=== PATIENT | female | born 1995 | race Caucasian/White ===

== ENCOUNTER 2016-05-20 18:17 | Emergency (ER) | payer OTHER ==
[2016-05-20] MEDS ORDERED: ONDANSETRON 4 MG TABLET PO ONE (18:21)
[2016-05-20 18:22] VITALS: BMI 26.4
[2016-05-20 19:18] LABS: BASOPHIL 0.5 % (0-2.0); EOSINOPHIL 1.2 % (0-4.5); MCH 27.1 pg (25.7-33.7); MCHC 32.7 g/dl (32.0-36.0); MEAN CELL VOLUME 82.7 fl (80-96); MEAN PLT VOLUME 7.4 fl (7.5-11.1); NEUTROPHILS 77.8 % (42.8-82.8); PLATELET COUNT 338 K/MM3 (134-434); RDW 14.3 % (11.6-15.6); WHITE BLOOD COUNT 11.1 K/mm3 (4.0-10.0)
[2016-05-20] MEDS ORDERED: ONDANSETRON 4 MG/2 ML VIAL ONE (19:32)
[2016-05-20 19:40] LABS: ALBUMIN 3.5 g/dl (3.4-5.0); ALK PHOS 110 U/L (45-117); AMYLASE 44 U/L (25-115); ANION GAP 9 (8-16); BILIRUBIN,TOTAL 0.3 mg/dL (0.2-1.0); CO2 26 mmol/L (21-32); CREATININE 0.9 mg/dL (0.55-1.02); GLUCOSE,RANDOM 74 mg/dL (74-106); SGPT/ALT 39 U/L (12-78); TOT PROT 7.4 g/dl (6.4-8.2)
[2016-05-20 19:43] LABS: SGOT/AST 29 U/L (15-37)
[2016-05-20 19:49] LABS: URINE APPEARANCE CLEAR; URINE BILIRUBIN NEGATIVE (NEGATIVE); URINE COLOR YELLOW; URINE GLUCOSE (UA) NEGATIVE (NEGATIVE); URINE KETONE NEGATIVE (NEGATIVE); URINE NITRITE NEGATIVE (NEGATIVE); URINE PROTEIN NEGATIVE (NEGATIVE); URINE UROBILINOGEN NEGATIVE E.U./dl (0.2-1.0)
[2016-05-20 19:50] LABS: URINE BLOOD 1+ (NEGATIVE); URINE LEUK ESTERASE 1+ (NEGATIVE)
[2016-05-20 19:52] LABS: URINE BACTERIA RARE /hpf (NONE SEEN); URINE HYALINE CAST 1 /lpf; URINE MUCUS FEW; URINE RBC 4 /hpf (0-3); URINE WBC 11 /hpf (3-5)
[2016-05-20] MEDS ORDERED: MAG HYDROX/AL HYDROX/SIMETH 30 ML UNIT-DOSE CUP PO ONE (19:53)
[2016-05-20] MEDS ORDERED: MAG HYDROX/AL HYDROX/SIMETH 30 ML UNIT-DOSE CUP ONE (19:59)
--- NOTE | 2016-05-20 20:24 | PDOC ---
History of Present Illness <JorgeGale Lanette - Last Filed: 05/20/16 20:32> - History of Present Illness Initial Comments: 05/20/16 20:28 The patient is a 20 year old female, with a significant past medical history of gastritis and gallstones, who presents to the emergency department with right upper quadrant abdominal pain and vomiting since this morning. She states the pain is constant and non radiating. She reports two episodes of vomiting today. She reports vaginal delivery 3 weeks ago and is currently breast feeding.She reports having an ultrasound on 03/19/16 which showed gallstones with no acute cholecystitis. She denies chest pain, shortness of breath, headache and dizziness. She denies fever, chills, diarrhea and constipation. She denies dysuria, frequency, urgency and hematuria. NIGHT ASSISTANT: Dr. Douglas <Emily Medina - Last Filed: 05/20/16 22:58> - General Chief Complaint: Pain, Acute Stated Complaint: ABD PAIN/VOMITING Time Seen by Provider: 05/20/16 18:31 Past History - Past Medical History Anemia: No Asthma: No Cancer: No Cardiac Disorders: No CVA: No COPD: No CHF: No Dementia: No Diabetes: No GI Disorders: Yes (EPIGASTRIC PAIN, NAUSEA, GALLSTONES) Disorders: No HTN: No Hypercholesterolemia: No Liver Disease: No Suicide Attempt (Hx): No Seizures: No Thyroid Disease: No - Surgical History Neurologic Surgery: No - Immunization History Immunization Up to Date: (UNKNOWN) - Psycho/Social/Smoking Cessation Hx Anxiety: No Suicidal Ideation: No Smoking History: Never smoked Have you smoked in the past 12 months: No Hx Alcohol Use: No Drug/Substance Use Hx: No Substance Use Type: None <JorgeRiccardolyric Gama - Last Filed: 05/20/16 20:32> <Emily Medina - Last Filed: 05/20/16 22:58> - Past Medical History Allergies/Adverse Reactions: Allergies Allergy/AdvReac Type Severity Reaction Status Date / Time No Known Allergies Allergy Verified 05/20/16 18:22 Home Medications: Ambulatory Orders Ondansetron [Zofran Odt -] 4 mg SL TID PRN #12 od.tablet 05/20/16 Review of Systems - Review of Systems Able to Perform ROS?: Yes Comments:: 05/20/16 20:29 CONSTITUTIONAL: Absent: fever, chills, diaphoresis, generalized weakness, malaise, loss of appetite HEENT: Absent: rhinorrhea, nasal congestion, throat pain, throat swelling, difficulty swallowing, mouth swelling, ear pain, eye pain, visual Changes CARDIOVASCULAR: Absent: chest pain, syncope, palpitations, irregular heart rate, lightheadedness , peripheral edema RESPIRATORY: Absent: cough, shortness of breath, dyspnea with exertion, orthopnea, wheezing, stridor, hemoptysis GASTROINTESTINAL: (+) RUQ and epigastric abdominal pain, nausea, vomiting. Absent: abdominal distension, diarrhea, constipation, melena, hematochezia GENITOURINARY: Absent: dysuria, frequency, urgency, hesitancy, hematuria, flank pain, genital pain MUSCULOSKELETAL: Absent: myalgia, arthralgia, joint swelling SKIN: Absent: rash, itching, pallor HEMATOLOGIC/IMMUNOLOGIC: Absent: easy bleeding, easy bruising, lymphadenopathy, frequent infections ENDOCRINE: Absent: unexplained weight gain, unexplained weight loss, heat intolerance, cold intolerance NEUROLOGIC: Absent: headache, focal weakness or paresthesias, dizziness, unsteady gait, seizure, mental status changes, bladder or bowel incontinence PSYCHIATRIC: Absent: anxiety, depression, suicidal or homicidal ideation, hallucinations. <Emily Medina - Last Filed: 05/20/16 22:58> *Physical Exam - Vital Signs Last Vital Signs Temp Pulse Resp BP Pulse Ox 59 L 18 124/61 98 05/20/16 18:20 05/20/16 18:20 05/20/16 18:20 05/20/16 18:20 <Gale Patel - Last Filed: 05/20/16 20:32> - Vital Signs Last Vital Signs Temp Pulse Resp BP Pulse Ox 59 L 18 124/61 98 05/20/16 18:20 05/20/16 18:20 05/20/16 18:20 05/20/16 18:20 - Physical Exam Comments: 05/20/16 20:30 GENERAL: Well developed, well nourished. Awake and alert. No acute distress. HEENT: Normocephalic, atraumatic. PERRLA, EOMI. No conjunctival pallor. Sclera are non- icteric. Moist mucous membranes. Oropharynx is clear. NECK: Supple. Full ROM. No JVD. Carotid pulses 2+ and symmetric, without bruits. No thyromegaly. No lymphadenopathy. CARDIOVASCULAR: Regular rate and rhythm. No murmurs, rubs, or gallops. Distal pulses are 2+ and symmetric. PULMONARY: No evidence of respiratory distress. Lungs clear to auscultation bilaterally. No wheezing, rales or rhonchi. ABDOMINAL: (+) epigastric tenderness to palpation. Soft. Non-distended. No rebound or guarding. No organomegaly. Normoactive bowel sounds. MUSCULOSKELETAL Normal range of motion at all joints. No bony deformities or tenderness. No CVA tenderness. EXTREMITIES: No cyanosis. No clubbing. No edema. No calf tenderness. SKIN: Warm and dry. Normal capillary refill. No rashes. No jaundice. NEUROLOGICAL: Alert, awake, appropriate. Cranial nerves 2-12 intact. Normoreflexic in the upper and lower extremities. Normal speech. Toes are down-going bilaterally. Gait is normal without ataxia. PSYCHIATRIC: Cooperative. Good eye contact. Appropriate mood and affect <Emily Medina - Last Filed: 05/20/16 22:58> ED Treatment Course - LABORATORY CBC & Chemistry Diagram: 05/20/16 18:57 05/20/16 18:57 - ADDITIONAL ORDERS Additional order review: Laboratory Results 05/20/16 05/20/16 19:41 18:57 Sodium 141 Potassium 4.3 Chloride 106 Carbon Dioxide 26 Anion Gap 9 BUN 7 Creatinine 0.9 D Creat Clearance w eGFR > 60 Random Glucose 74 D Calcium 9.0 Total Bilirubin 0.3 AST 29 ALT 39 Alkaline Phosphatase 110 Total Protein 7.4 Albumin 3.5 Total Amylase 44 D Lipase 232 Urine Color Yellow Urine Appearance Clear Urine pH 5.0 D Ur Specific [place] 1.019 Urine Protein Negative Urine Glucose (UA) Negative Urine Ketones Negative Urine Blood 1+ H Urine Nitrite Negative Urine Bilirubin Negative Urine Urobilinogen Negative Ur Leukocyte Esterase 1+ H Urine RBC 4 Urine WBC 11 Ur Epithelial Cells Rare Urine Bacteria Rare Hyaline Casts 1 Urine Mucus Few Urine HCG, Qual Negative 05/20/16 18:57 RBC 4.47 MCV 82.7 MCHC 32.7 RDW 14.3 D MPV 7.4 L Neutrophils % 77.8 Lymphocytes % 15.1 D Monocytes % 5.4 Eosinophils % 1.2 D Basophils % 0.5 D - Medications Given in the ED: ED Medications Discontinued Medications Generic Name Dose Route Start Last Admin Trade Name Kyleq PRN Reason Stop Dose Admin Al Hydroxide/Mg Hydroxide 30 ml 05/20/16 19:53 05/20/16 19:59 Mylanta Oral Suspension - PO 05/20/16 19:54 30 ml ONCE ONE Administration Ondansetron HCl 4 mg 05/20/16 18:21 05/20/16 19:34 Zofran - PO 05/20/16 18:22 4 mg ONCE ONE Administration <Gale Patel - Last Filed: 05/20/16 20:32> - LABORATORY CBC & Chemistry Diagram: 05/20/16 18:57 05/20/16 18:57 - ADDITIONAL ORDERS Additional order review: Laboratory Results 05/20/16 05/20/16 19:41 18:57 Sodium 141 Potassium 4.3 Chloride 106 Carbon Dioxide 26 Anion Gap 9 BUN 7 Creatinine 0.9 D Creat Clearance w eGFR > 60 Random Glucose 74 D Calcium 9.0 Total Bilirubin 0.3 AST 29 ALT 39 Alkaline Phosphatase 110 Total Protein 7.4 Albumin 3.5 Total Amylase 44 D Lipase 232 Urine Color Yellow Urine Appearance Clear Urine pH 5.0 D Ur Specific [place] 1.019 Urine Protein Negative Urine Glucose (UA) Negative Urine Ketones Negative Urine Blood 1+ H Urine Nitrite Negative Urine Bilirubin Negative Urine Urobilinogen Negative Ur Leukocyte Esterase 1+ H Urine RBC 4 Urine WBC 11 Ur Epithelial Cells Rare Urine Bacteria Rare Hyaline Casts 1 Urine Mucus Few Urine HCG, Qual Negative 05/20/16 18:57 RBC 4.47 MCV 82.7 MCHC 32.7 RDW 14.3 D MPV 7.4 L Neutrophils % 77.8 Lymphocytes % 15.1 D Monocytes % 5.4 Eosinophils % 1.2 D Basophils % 0.5 D - Medications Given in the ED: ED Medications Discontinued Medications Generic Name Dose Route Start Last Admin Trade Name Kyleq PRN Reason Stop Dose Admin Al Hydroxide/Mg Hydroxide 30 ml 05/20/16 19:53 05/20/16 19:59 Mylanta Oral Suspension - PO 05/20/16 19:54 30 ml ONCE ONE Administration Ondansetron HCl 4 mg 05/20/16 18:21 05/20/16 19:34 Zofran - PO 05/20/16 18:22 4 mg ONCE ONE Administration <Emily Medina - Last Filed: 05/20/16 22:58> *DC/Admit/Observation/Transfer <Gale Patel - Last Filed: 05/20/16 20:32> - Attestations Scribe Attestion: 05/20/16 20:30 Documentation prepared by Emily Medina, acting as manager medical writing for Gale Patel MD <Emily Medina - Last Filed: 05/20/16 22:58> Diagnosis at time of Disposition: Gallstones - Discharge Dispostion Disposition: HOME Condition at time of disposition: Stable - Prescriptions Prescriptions: Ondansetron [Zofran Odt -] 4 mg SL TID PRN #12 od.tablet PRN Reason: Nausea And/Or Vomiting - Referrals Referrals: Ena Coffey [Primary Care Provider] - - Patient Instructions Printed Discharge Instructions: DI for Gallstones, DI for Epigastric Pain, DI for Vomiting -- Adult Additional Instructions: please avoid fatty or fried foods follow up with your regular doctor for surgical referral when you decide to have it removed
[2016-05-20] MEDS ORDERED: IBUPROFEN 600 MG TABLET (FP) PO ONE ×2 (20:31→20:35)
[2016-05-20 20:38] VITALS: BP 129/80; PULSE 78
== END 2016-05-20 20:38 | disposition home or self-care (01) ==
LOC: JER 18:17
DX: K80.20 Calculus of gallbladder without cholecystitis without obstruction (principal)
CPT/HCPCS: 36415; 80053; 81003; 81015; 82150; 83690; 84703; 85025; 99282-25

== ENCOUNTER 2016-05-25 19:18 | Inpatient (IN) | payer OTHER ==
[2016-05-25] MEDS ORDERED: PANTOPRAZOLE SODIUM 40 MG in SODIUM CHLORIDE 100 ML IVPB ONE (20:06)
[2016-05-25] MEDS ORDERED: ONDANSETRON 4 MG/2 ML VIAL IVPB ONE (20:06)
[2016-05-25] MEDS ORDERED: SODIUM CHLORIDE 1,000 ML IV STA ×2 (20:06→23:41)
[2016-05-25] MEDS ORDERED: morphine CARPU-JECT 4 MG/1 ML DISP.SYRIN IVPUSH ONE (20:06)
[2016-05-25] MEDS ORDERED: PANTOPRAZOLE SODIUM 100 ML IVPB ONE (20:16)
[2016-05-25] MEDS ORDERED: ONDANSETRON 4 MG/2 ML VIAL ONE (20:16)
[2016-05-25] MEDS ORDERED: morphine CARPU-JECT 4 MG/1 ML DISP.SYRIN ONE (20:16)
[2016-05-25 20:24] LABS: BASOPHIL 0.2 % (0-2.0); EOSINOPHIL 0.7 % (0-4.5); MCH 27.4 pg (25.7-33.7); MCHC 33.2 g/dl (32.0-36.0); MEAN CELL VOLUME 82.4 fl (80-96); MEAN PLT VOLUME 7.7 fl (7.5-11.1); NEUTROPHILS 78.9 % (42.8-82.8); PLATELET COUNT 315 K/MM3 (134-434); RDW 15.1 % (11.6-15.6); WHITE BLOOD COUNT 12.1 K/mm3 (4.0-10.0)
--- NOTE | 2016-05-25 20:31 | PDOC ---
History of Present Illness <Faye Ricardo - Last Filed: 05/25/16 21:00> - General History Source: Patient Exam Limitations: No Limitations - History of Present Illness Travel History: No Initial Comments: 05/25/16 20:09 20yo Female patient presents to ED with Father c/o abd pain. Patient states she recently gave 4 weeks ago, and while she was she was diagnosed with gall stones, but states she was not referred to GI. She also confirms that she was seen in this ED on Friday, discharged home with Solange. Patient returns tonight with increasing abd pain/epi gastric pain since 5pm, unable to tolerated po solids/fluids. Last meal 12 noon. Associated Nausea. Denies back pain, diff breathing, fever, vomiting/diarrhea, or any other complaints at this time. Timing/Duration: reports: getting worse Quality: reports: severe, aching Abdominal Pain Onset Location: reports: RUQ, epigastric Pain Radiation: reports: no radiation Activities at Onset: reports: no specific activity Treatment Prior to Arrive: worse with: analgesics, antacids, cold pack, heat, laxative, enema, other Aggravating Factors: improves with: Eating, Movement, Change in position Alleviating Factors: improves with: None <Ayala Desai - Last Filed: 05/26/16 06:03> - General Chief Complaint: Pain Stated Complaint: ABD PAIN Time Seen by Provider: 05/25/16 19:51 Past History <Faye Ricardo - Last Filed: 05/25/16 21:00> - Travel Traveled outside of the country in the last 30 days: No Close contact w/someone who was outside of country & ill: No - Past Medical History Anemia: No Asthma: No Cancer: No Cardiac Disorders: No CVA: No COPD: No CHF: No Dementia: No Diabetes: No GI Disorders: Yes (EPIGASTRIC PAIN, NAUSEA, GALLSTONES) Disorders: No HTN: No Hypercholesterolemia: No Liver Disease: No Suicide Attempt (Hx): No Seizures: No Thyroid Disease: No Other medical history: Gallstones - Surgical History Neurologic Surgery: No - Immunization History Immunization Up to Date: (UNKNOWN) - Psycho/Social/Smoking Cessation Hx Anxiety: No Suicidal Ideation: No Smoking History: Never smoked Have you smoked in the past 12 months: No Hx Alcohol Use: No Drug/Substance Use Hx: No Substance Use Type: None <Ayala Desai - Last Filed: 05/26/16 06:03> - Past Medical History Allergies/Adverse Reactions: Allergies Allergy/AdvReac Type Severity Reaction Status Date / Time No Known Allergies Allergy Verified 05/25/16 19:25 Home Medications: Ambulatory Orders Ondansetron [Zofran Odt -] 4 mg SL TID PRN #12 od.tablet 05/20/16 Abd/GI Specific PMHX - Complaint Specific PMHX Colitis: No Diverticulitis: No Gall Bladder Disease: No GERD: No Hepatitis: No Irritable Bowel Synd (IBS): No Pancreatitis: No GI Ulcer Disease: No Other History: Gall Stones <Ayala Desai - Last Filed: 05/26/16 06:03> Review of Systems - Review of Systems Able to Perform ROS?: Yes Is the patient limited Bahamian proficient: No Constitutional: No: Chills, Fever Respiratory: No: Cough, Orthopnea, Shortness of Breath, Stridor, Wheezing, Hemoptysis Cardiac (ROS): No: Chest Pain, Lightheadedness, Palpitations, Syncope, Chest Tightness ABD/GI: Yes: Nausea, Poor Appetite, Poor Fluid Intake, Other (+ Abd pain (RUQ/ Epigastric)). No: Constipated, Diarrhea, Rectal Bleeding, Vomiting, Indigestion , Abdominal cramping, Tarry Stools : No: Burning, Dysuria, Discharge, Flank Pain, Hematuria, Pain, Urgency Musculoskeletal: No: Back Pain All Other Systems: Reviewed and Negative <Ayala Desai - Last Filed: 05/26/16 06:03> *Physical Exam - Vital Signs Last Vital Signs Temp Pulse Resp BP Pulse Ox 97.5 F L 73 18 102/68 99 05/25/16 19:22 05/25/16 19:22 05/25/16 19:22 05/25/16 19:22 05/25/16 19:22 <Faye Ricardo - Last Filed: 05/25/16 21:00> - Vital Signs Last Vital Signs Temp Pulse Resp BP Pulse Ox 97.5 F L 73 18 102/68 99 05/25/16 19:22 05/25/16 19:22 05/25/16 19:22 05/25/16 19:22 05/25/16 19:22 - Physical Exam General Appearance: Yes: Nourished, Appropriately Dressed, Apparent Distress, Moderate Distress. No: Mild Distress, Severe Distress Respiratory/Chest: positive: Lungs Clear, Normal Breath Sounds. negative: Chest Tender, Respiratory Distress, Accessory Muscle Use, Labored Respiration, Rapid RR Cardiovascular: positive: Regular Rhythm, Regular Rate. negative: Edema, JVD, Murmur Gastrointestinal/Abdominal: positive: Tender, Soft ( + [place] sign), Decreased BS, Guarding, Rebound, Tenderness. negative: Distended Musculoskeletal: positive: Normal Inspection. negative: CVA Tenderness Extremity: positive: Normal Capillary Refill, Normal Inspection, Normal Range of Motion. 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 NML intact, Fully Oriented, Alert, Normal Mood/ Affect, Normal Response, Motor Strength 5/5 <Ayala Desai - Last Filed: 05/26/16 06:03> ED Treatment Course - LABORATORY CBC & Chemistry Diagram: 05/25/16 20:15 05/25/16 20:14 - ADDITIONAL ORDERS Additional order review: Laboratory Results 05/25/16 20:06 Urine HCG, Qual Negative 05/25/16 20:15 RBC 4.68 MCV 82.4 MCHC 33.2 RDW 15.1 MPV 7.7 Neutrophils % 78.9 Lymphocytes % 13.4 Monocytes % 6.8 Eosinophils % 0.7 Basophils % 0.2 - Medications Given in the ED: ED Medications Discontinued Medications Generic Name Dose Route Start Last Admin Trade Name Earl PRN Reason Stop Dose Admin Pantoprazole Sodium 40 mg/ 100 mls @ 200 mls/hr 05/25/16 20:06 05/25/16 20:26 Sodium Chloride IVPB 05/25/16 20:35 200 mls/hr ONCE ONE Administration Morphine Sulfate 4 mg 05/25/16 20:06 05/25/16 20:26 Morphine Injection - IVPUSH 05/25/16 20:07 4 mg ONCE ONE Administration Ondansetron HCl 8 mg 05/25/16 20:06 05/25/16 20:26 Zofran Injection IVPB 05/25/16 20:07 8 mg ONCE ONE Administration <Faye Ricardo - Last Filed: 05/25/16 21:00> - LABORATORY CBC & Chemistry Diagram: 05/25/16 20:15 05/25/16 20:14 - RADIOLOGY Radiology Studies Ordered: Category Date Time Status CHEST PA & LAT [RAD] Stat Radiology 05/25/16 20:08 Ordered GALLBLADDER US [US] Stat Ultrasound 05/25/16 20:06 Ordered <Ayala Desai - Last Filed: 05/26/16 06:03> Progress Note - Progress Note Progress Note: Name: Joseluis Hernandez : 1995 Sex: F Study Date & Time: 05/25/201621:51:46 Description: GALLBLADDER US Tire Room Supervisor: (kai) Begin of Report Content Referring Physician: Ayala Desai Patient Name: Mary Badillo THIS IS A PRELIMINARY REPORT FROM [facility] DATE OF SERVICE: 2016-05-25 21:51:46.0 IMAGES: 42 EXAM: GALLBLADDER US HISTORY:Right upper quadrant and epigastric pain COMPARISON: None. FINDINGS: Cholelithiasis. No evidence for acute gallbladder disease. Liver, pancreas right kidney appear unremarkable. No aortic aneurysm. IVC is patent. THIS DOCUMENT HAS BEEN ELECTRONICALLY SIGNED Tosha MD Star 05/25/2016 22:38 EST M.D. Please call [facility] [phone] ([phone]) with questions. End of Report Content <Ayala Desai - Last Filed: 05/26/16 06:03> Medical Decision Making - Medical Decision Making 05/25/16 21:00 EKG NSR; some septal flipped t waves <Faye Ricardo - Last Filed: 05/25/16 21:00> *DC/Admit/Observation/Transfer <Faye Ricardo - Last Filed: 05/25/16 21:00> - Discharge Dispostion Admit: Yes <Ayala Desai - Last Filed: 05/26/16 06:03> Diagnosis at time of Disposition: Common bile duct calculus - Discharge Dispostion Condition at time of disposition: Fair
[2016-05-25 21:06] LABS: URINE APPEARANCE CLEAR; URINE BILIRUBIN NEGATIVE (NEGATIVE); URINE BLOOD NEGATIVE (NEGATIVE); URINE COLOR YELLOW; URINE GLUCOSE (UA) NEGATIVE (NEGATIVE); URINE KETONE NEGATIVE (NEGATIVE); URINE NITRITE NEGATIVE (NEGATIVE); URINE PROTEIN NEGATIVE (NEGATIVE); URINE UROBILINOGEN NEGATIVE E.U./dl (0.2-1.0)
[2016-05-25 21:07] LABS: URINE LEUK ESTERASE 3+ (NEGATIVE)
[2016-05-25 22:30] LABS: URINE WBC 16-20 /hpf (3-5)
[2016-05-25 22:31] LABS: URINE BACTERIA MODERATE /hpf (NONE SEEN)
[2016-05-25 23:16] LABS: ALBUMIN 4.1 g/dl (3.4-5.0); BILIRUBIN,DIRECT 0.9 mg/dL (0.0-0.2); BILIRUBIN,TOTAL 1.5 mg/dL (0.2-1.0); CALCIUM 9.3 mg/dL (8.5-10.1); CREATININE 0.9 mg/dL (0.55-1.02); TOT PROT 7.7 g/dl (6.4-8.2)
[2016-05-26] MEDS ORDERED: IBUPROFEN 400 MG TABLET (FP) PO PRN (07:37)
[2016-05-26] MEDS ORDERED: ONDANSETRON 4 MG/2 ML VIAL IVPB PRN (07:37)
[2016-05-26] MEDS ORDERED: MAG HYDROX/AL HYDROX/SIMETH 30 ML UNIT-DOSE CUP PO PRN (07:50)
--- NOTE | 2016-05-26 07:50 | HP ---
Admitting History and Physical - Admission History of Present Illness: 20 year old woman with gallstones, 3 weeks post who presents to the ED complaining of nausea, vomiting, and epigastric abdominal pain. Pt was recently seen in the ED earlier this week for similar symptoms. She was treated with IVF , anti-emetic and was discharged home as labs were within normal limits. Today LFT's are elevated with elevated indirect bili and appearance of possible fatty infiltration of the liver with no dilation of biliary tree. - Smoking History Smoking history: Never smoked Have you smoked in the past 12 months: No - Alcohol/Substance Use Hx Alcohol Use: No Home Medications - Allergies Allergies/Adverse Reactions: Allergies Allergy/AdvReac Type Severity Reaction Status Date / Time No Known Allergies Allergy Verified 05/25/16 19:25 - Home Medications Home Medications: Ambulatory Orders Unobtainable [Unobtainable] 05/26/16 Review of Systems - Review of Systems Constitutional: reports: Loss of Appetite Eyes: denies: No Symptoms, Blind Spots, Blurred Vision, Double Vision, Eye Pain , Floaters, Photophobia, Recent Change in Vision, Other HENT: denies: No Symptoms, Difficult Swallowing, Ear Discharge, Ear Pain, Epistaxis, Gingival Bleeding, Hearing Loss, Mouth Swelling, Nasal Congestion, Ocular Prosthesis, Throat Pain, Toothache, Ringing in Ears, Other Neck: denies: No Symptoms, Decreased ROM, Lumps, Pain on Movement, Stiffness, Swollen Glands, Tenderness, Other Cardiovascular: denies: No Symptoms, Chest Pain, Edema, Palpitations, Shortness of Breath, Other Respiratory: denies: No Symptoms, Cough, Exercise Intolerance, Hemoptysis, Orthopnea, PND, Snoring, SOB, SOB on Exertion, Wheezing, Other Gastrointestinal: reports: Abdominal Pain, Vomiting Genitourinary: denies: No Symptoms, Burning, Discharge, Dysuria, Flank Pain, Frequency, Hematuria, Incontinence, Lesions, Menses, Pain, Testicular Mass, Testicular Pain, Testicular Swelling, Urgency, Vaginal Bleeding, Other Breasts: denies: No Symptoms Reported, See HPI, Breast Implants, Discharge from Nipple, Lumps, Pain, Skin Changes, Other Musculoskeletal: denies: No Symptoms, Back Pain, Crepitus, Decreased ROM, Extremity Pain, Joint Pain, Joint Swelling, Muscle Pain, Muscle Cramps, Muscle Weakness, Other Integumentary: denies: No Symptoms, Blister, Bruising, Change in Color, Eczema, Erythema, Incision, Lesions, Lump, Pallor, Pruritis, Rash, Wound, Other Neurological: denies: No Symptoms, Change in LOC, Change in Speech, Confusion, Dizziness, Headache, Incoordination, Numbness, Parasthesia, Pre-Existing Deficit , Seizure, Syncope, Tremors, Unsteady Gait, Weakness, Other Endocrine: denies: No Symptoms, Excessive Sweating, Flushing, Increased Hunger, Increased Thirst, Intolerance to Cold, Intolerance to Heat, Unexplained Weight Gain, Unexplained Weight Loss, Other Hematology/Lymphatic: denies: No Symptoms, Easily Bruised, Excessive Bleeding, Swollen Glands, Other Psychiatric: denies: No Symptoms, Altered Sleep Pattern, Anxiety, Depression, Hallucinations, Panic, Paranoia, Suicidal, Other Physical Examination Vital Signs: Vital Signs Temperature 97.5 F L 05/25/16 19:22 Pulse Rate 80 05/26/16 07:35 Respiratory Rate 16 05/26/16 07:35 Blood Pressure 120/72 05/26/16 07:35 O2 Sat by Pulse Oximetry (%) 99 05/26/16 07:35 Constitutional: Yes: Well Nourished, Calm, Mild Distress Eyes: Yes: WNL, Conjunctiva Clear, EOM Intact HENT: Yes: WNL, Atraumatic, Normocephalic Neck: Yes: WNL, Supple, Trachea Midline Cardiovascular: Yes: WNL, Regular Rate and Rhythm Respiratory: Yes: WNL, Regular, CTA Bilaterally Gastrointestinal: Yes: Normal Bowel Sounds, Soft, Tenderness, Epigastrium Musculoskeletal: Yes: WNL Extremities: Yes: WNL Edema: No Integumentary: Yes: WNL Neurological: Yes: WNL, Alert, Oriented ...Motor Strength: WNL Psychiatric: Yes: WNL Assessment/Plan 20 year old woman with gallstones, 3 weeks post admitted for acute hepatitis Hepatitis -LFT's are elevated with elevated indirect bili and appearance of possible fatty infiltration of the liver with no dilation of biliary tree (my read but will follow up with radiologist's reading) -given these findings biliary obstruction is less likely -follow up repeat CBC CMP coags for this AM -follow up hep panel, iron studies, AILEEN, copper (ordered ceruloplasmin but computer system does not allow for this test to be done as an inpatient) -follow up GI consult -clear liquid diet as tolerated -alesha prn Visit type - Emergency Visit Emergency Visit: Yes ED Registration Date: 05/26/16 Care time: The patient presented to the Emergency Department on the above date and was hospitalized for further evaluation of their emergent condition. - New Patient This patient is new to me today: Yes Date on this admission: 05/26/16 - Critical Care Critical Care patient: No
[2016-05-26 10:16] LABS: BASOPHIL 0.3 % (0-2.0); EOSINOPHIL 1.9 % (0-4.5); MCHC 32.5 g/dl (32.0-36.0); MEAN CELL VOLUME 83.3 fl (80-96); MEAN PLT VOLUME 7.7 fl (7.5-11.1); NEUTROPHILS 64.9 % (42.8-82.8); PLATELET COUNT 281 K/MM3 (134-434); RDW 14.5 % (11.6-15.6); WHITE BLOOD COUNT 7.1 K/mm3 (4.0-10.0)
[2016-05-26 10:30] LABS: ALBUMIN 3.4 g/dl (3.4-5.0); ALK PHOS 175 U/L (45-117); ANION GAP 8 (8-16); BILIRUBIN,DIRECT 0.2 mg/dL (0.0-0.2); BILIRUBIN,TOTAL 0.7 mg/dL (0.2-1.0); CALCIUM 8.6 mg/dL (8.5-10.1); CO2 26 mmol/L (21-32); CREATININE 0.8 mg/dL (0.55-1.02); GLUCOSE,RANDOM 86 mg/dL (74-106); SGOT/AST 155 U/L (15-37); SGPT/ALT 168 U/L (12-78); TOT PROT 6.5 g/dl (6.4-8.2)
[2016-05-26 10:44] LABS: INR 1.13 (0.82-1.09); PROTHROMBIN TIME (PATIENT) 12.5 SEC (9.98-11.88)
[2016-05-26] MEDS ORDERED: HYDROmorphone HCL CARPU-JECT 1 MG/1 ML DISP.SYRIN IVPB PRN (14:40)
[2016-05-26 14:43] VITALS: BMI 26.5
--- NOTE | 2016-05-26 14:48 | CON.GI ---
Consult Consult Specialty:: GASTROENTEROLOGY Reason for Consultation:: RUQ PAIN,NAUSEA/VOMITING - History of Present Illness Chief Complaint: RUQ PAIN History of Present Illness: 20 YEAR OLD FEMALE WHO DELIVERED A BABY 4 WEEKS AGO RETURNS TO [facility] WITH RUQ PAIN, NAUSEA AND SOME VOMITING . PAIN AMDE WORSE WITH FOOD. STATES SHE CAN'T EAT. HAD MULTIPLE VISITS TO THE ED HERE AT [facility] DURING FOR EPIGASTRIC AND RUQ PAIN. SHE WAS DIAGNOSED WITH GASTRITIS AND GALLSTONES. HER LFT'S WERE ALWAYS NORMAL AND SHE WAS SNET HOME. HER LIVER LIVER TESTS ARE NOW ABNORMAL ON ADMISSION WITH SLIGHT RISE IN BILIRUBIN AND NOW THIS AM HER BILI HAS NORMALIZED WITH SOME IMPROVEMENT IN TRANSAMINASES AND AN ABNORMAL ALK PHOS. SHE STILL COMPLAINS OF RUQ PAIN WITHOUT RADIATION. SHE HAS NO FEVER. SHE HAD A CT SCAN TODAY HER SONOGRAM REVEALED MULTIPLE STONES WITH NORMAL CBD AND CONTRACTED GB. HER MOTHER HAD CHOLECYSECTOMY DURING HER WITH HER SECOND CHILD. 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: No: Alzheimer's, CVA, Dementia, Migraine, Multiple Sclerosis, Peripheral Neuropathy, Parkinson's, Seizure, Syncope, TIA, Vertigo, Other Cardio/Vascular: No: AFIB, Aneurysm, Aortic Insufficiency, Aortic Stenosis, CAD , CHF, Deep Vein Thrombosis, HTN, Hyperlipdemia, ID, Mitral Insufficiency, Mitral Stenosis, Murmur, Pulmonary Hypertension, Other Pulmonary: No: Asthma, Bronchitis, Cancer, COPD, O2 Dependent, Pneumonia, Previously Intubated, Pulmonary Embolus, Pulmonary Fibrosis, Sleep Apnea, Other Gastrointestinal: Yes: Gastritis, GERD Hepatobiliary: Yes: Cholelithiasis Renal/: No: Renal Failure, Renal Inusuff, BPH, Cancer, Hematuria, Hemodialysis , Neurogenic Bladder, Renal Calculi, UTI, Other ...: No (4 WEEKS POST ) Heme/Onc: No: Anemia, B12 Deficiency, Bleeding Disorder, Cancer, Current Chemotherapy, Current Radiation Therapy, Hemochromatosis, Hypercoaguable State, Myeloproliferative Synd, Sickle Cell Disease, Sickle Cell Trait, Thrombocytopenia, Other Infectious Disease: No: AIDS, C-Diff, Herpes Zoster, HIV, MRSA, STD's, Tuberculosis, VREF, Other Psych: No: Addictions, Anxiety, Bipolar, Depression, Panic, Psychosis, Schizophrenia, Other Musculoskeletal: No: Bursitis, Chronic low back pain, Hemiparesis, Hemiplegia, Osteoarthritis, Paraplegia, Other Rheumatology: No: Fibromyalgia, Gout, Lupus, Rheumatoid Arthritis, Sarcoidosis, Vasculitis, Other Endocrine: No: Heath's Disease, Ginny's Disease, Diabetes Insipidus, Diabetes Mellitus, Hyperparathyroidism, Hyperthyroidism, Hypothyroidism, Osteopenia, SIADH, Other Dermatology: No: Basal Cell, Cellulitis, Eczema, Melanoma, Psoriasis, Squamous Cell, Other - Past Surgical History Past Surgical History: No: None, AAA Repair, AICD, Amputation, Appendectomy, Arthrosocopy, AV Fistula/Graft, Bariatric Surgery, Breast Biopsy, Bypass, CABG, Carotid Endarterectomy, Cataract Removal, Cholecystectomy, Colectomy, Colonoscopy, Colostomy, Craniotomy, , Cystectomy, Hernia Repair, Hysterectomy, Ileal Conduit, Ileosotomy, Joint Replacement, Kidney Transplant, Laminectomy, Liver Transplant, Mastectomy, Nephrectomy, Oopherectomy, Orchiectomy, Permanent Pacemaker, Prostatectomy, Splenectomy, Stent, Thoracotomy , TURP, Tonsillectomy, Tubal Ligation, Upper Endoscopy, Valve Replacement, Vasectomy, Vein Stripping/Ligation - Alcohol/Substance Use Hx Alcohol Use: No - Smoking History Smoking history: Never smoked Have you smoked in the past 12 months: No Home Medications - Allergies Allergies/Adverse Reactions: Allergies Allergy/AdvReac Type Severity Reaction Status Date / Time No Known Allergies Allergy Verified 05/25/16 19:25 - Home Medications Home Medications: Ambulatory Orders Unobtainable [Unobtainable] 05/26/16 Family Disease History - Family Disease History Family Disease History: Other: Mother (CHOLECYSTITIS) Review of Systems - Review of Systems Constitutional: reports: Loss of Appetite, Malaise Eyes: reports: No Symptoms HENT: reports: No Symptoms Neck: reports: No Symptoms Cardiovascular: reports: Chest Pain (BURNING TYPE ON OCCASION) Respiratory: reports: No Symptoms Gastrointestinal: reports: Abdominal Pain, Nausea, Vomiting, Other (RUQ PAIN WITHOUT RADIATION) Genitourinary: reports: No Symptoms Breasts: reports: Other (BREAST FEEDING, PT "PUMPING AND DUMPING") Musculoskeletal: reports: No Symptoms Integumentary: reports: No Symptoms Neurological: reports: No Symptoms Endocrine: reports: No Symptoms Hematology/Lymphatic: reports: No Symptoms Psychiatric: reports: No Symptoms Physical Exam-GI Vital Signs: Vital Signs Temperature 97.4 F L 05/26/16 14:06 Pulse Rate 48 L 05/26/16 14:06 Respiratory Rate 20 05/26/16 14:06 Blood Pressure 125/69 05/26/16 14:06 O2 Sat by Pulse Oximetry (%) 99 05/26/16 07:35 Constitutional: Yes: Well Nourished Eyes: Yes: Conjunctiva Clear HENT: Yes: Normocephalic Neck: Yes: Supple Cardiovascular: Yes: Regular Rate and Rhythm Respiratory: Yes: Regular ...Auscultate: Yes: Normoactive Bowel Sounds ...Palpate: Yes: Tenderness (RUQ PAIN = COLLINS'S, NO GUARDING OR REBOUND) ...Rectal Exam: Yes: Deferred Extremities: Yes: WNL Neurological: Yes: WNL Labs: CBC, BMP 05/26/16 09:30 05/26/16 09:30 INR, PTT INR 1.13 (0.82-1.09) 05/26/16 09:30 Laboratory Tests 05/25/16 05/26/16 20:14 09:30 Total Bilirubin 1.5 H D 0.7 D Direct Bilirubin 0.9 H 0.2 D AST 262 H D 155 H D ALT 144 H D 168 H Alkaline Phosphatase 211 H D 175 H Problem List - Problems (1) RUQ abdominal pain Assessment/Plan: THE CLINICAL PICTURE AND THE ELEVATIONS OF LIVER STUDIES CAN BE SEEN IN HEPATITIS OR EARLY OR PRIOR BILIARY OBSTRUCTION. GIVEN HER COMPLETE HISTORY I BELIEVE THIS IS BILIARY COLIC AND PASSAGE OF GALLSTONES. AWAIT CT SCAN, SUGGEST SURGICAL CONSULT, +/- HIDA OR MRCP. I HAVE SENT OFF A STAT LIPASE. THE ELEVATION OF HER ALK PHOS MAKES DIAGNOSIS OF YULI LESS LIKELY. IT COULD BE FROM BUT AFTER 4 WEEKS EXCEPT IT TO BE NORMAL. THE FACT THAT IT WAS ABNORMAL AND HAS SLIGHTLY IMPROVED SUGGEST PASSAGE OF STONE. I HAVE EXPLAINED THE EVALUATION TO THE PATIENT AND HER . AWAIT CT SCAN. I HAVE ADDED PRN DILAUDID. Code(s): R10.11 - RIGHT UPPER QUADRANT PAIN (2) Gallstones Code(s): K80.20 - CALCULUS OF GALLBLADDER W/O CHOLECYSTITIS W/O OBSTRUCTION (3) Hyperbilirubinemia Code(s): E80.6 - OTHER DISORDERS OF BILIRUBIN METABOLISM (4) Elevated transaminase level Code(s): R74.0 - NONSPEC ELEV OF LEVELS OF TRANSAMNS & LACTIC ACID DEHYDRGNSE (5) GERD (gastroesophageal reflux disease) Code(s): K21.9 - GASTRO-ESOPHAGEAL REFLUX DISEASE WITHOUT ESOPHAGITIS Qualifiers: Esophagitis presence: with esophagitis Qualified Code(s): K21.0 - Gastro-esophageal reflux disease with esophagitis
--- NOTE | 2016-05-26 18:16 | EKG ---
Test Reason : Blood Pressure : / mmHG Vent. Rate : 061 BPM Atrial Rate : 061 BPM P-R Int : 126 ms QRS Dur : 088 ms QT Int : 392 ms P-R-T Axes : 042 052 031 degrees QTc Int : 394 ms SINUS RHYTHM WITH MARKED SINUS ARRHYTHMIA OTHERWISE NORMAL ECG WHEN COMPARED WITH ECG OF 18-MAR-2016 21:44, NO SIGNIFICANT CHANGE WAS FOUND Confirmed by PARISA RUANO MD ([id number]) on 05/26/2016 6:16:15 PM Referred By: Confirmed By:PARISA RUANO MD
[2016-05-27 08:07] LABS: BASOPHIL 0.5 % (0-2.0); EOSINOPHIL 4.2 % (0-4.5); MCH 27.3 pg (25.7-33.7); MEAN CELL VOLUME 82.7 fl (80-96); MEAN PLT VOLUME 7.8 fl (7.5-11.1); NEUTROPHILS 56.2 % (42.8-82.8); PLATELET COUNT 284 K/MM3 (134-434); RDW 14.7 % (11.6-15.6); WHITE BLOOD COUNT 6.2 K/mm3 (4.0-10.0)
[2016-05-27 08:19] LABS: INR 1.12 (0.82-1.09); PROTHROMBIN TIME (PATIENT) 12.4 SEC (9.98-11.88)
[2016-05-27 08:22] LABS: ACTIVATED PTT 31.2 SECONDS (26.9-34.4); ALBUMIN 3.8 g/dl (3.4-5.0); ANION GAP 7 (8-16); BILIRUBIN,TOTAL 0.6 mg/dL (0.2-1.0); CALCIUM 9.2 mg/dL (8.5-10.1); CO2 30 mmol/L (21-32); CREATININE 0.8 mg/dL (0.55-1.02); GLUCOSE,RANDOM 72 mg/dL (74-106); SGOT/AST 63 U/L (15-37); SGPT/ALT 124 U/L (12-78); TOT PROT 7.3 g/dl (6.4-8.2)
[2016-05-27 08:23] LABS: ALK PHOS 175 U/L (45-117)
[2016-05-27] MEDS: LACTATED RINGERS SOLUTION 1,000 ML IV SCH ×2 (09:34→21:22)
--- NOTE | 2016-05-27 11:37 | PN ---
Progress Note (short form) - Note Progress Note: GASTROENTEROLOGY DISCUSSED RESULTS OF CT SCAN WITH EVENING NURSE AFTER 8 PM. LIPASE ORDERED YESTERDAY AFTERNOON. ABNORMAL RESULT OF LIPASE NOT CALLED TO MY ATTENTION CRITICAL VALUE. NURSING STAFF DOES NOT KNOW WHAT SCHOLARSHIP COUNSELOR COVERING THAT FLOOR TODAY SPOKE WITH NURSE THIS AM STAT ORDERS FOR NPO, ASKED THEN TO CONTACT SURGEON FOR SURGICAL CONSULT, I HAVE STOP MOTRIN. DR HAY INFORMED. KALIA GUNTER MD Problem List - Problems (1) RUQ abdominal pain Code(s): R10.11 - RIGHT UPPER QUADRANT PAIN (2) Gallstones Code(s): K80.20 - CALCULUS OF GALLBLADDER W/O CHOLECYSTITIS W/O OBSTRUCTION (3) Hyperbilirubinemia Code(s): E80.6 - OTHER DISORDERS OF BILIRUBIN METABOLISM (4) Elevated transaminase level Code(s): R74.0 - NONSPEC ELEV OF LEVELS OF TRANSAMNS & LACTIC ACID DEHYDRGNSE (5) GERD (gastroesophageal reflux disease) Code(s): K21.9 - GASTRO-ESOPHAGEAL REFLUX DISEASE WITHOUT ESOPHAGITIS Qualifiers: Esophagitis presence: with esophagitis Qualified Code(s): K21.0 - Gastro-esophageal reflux disease with esophagitis
--- NOTE | 2016-05-27 12:09 | CONSULT ---
- Consultation REQUESTING PROVIDER: Connor Thorne MD CONSULT REQUEST: CTSP for evaluation and management of symptomatic gallbladder disease. PCP:Nohemi Thorne MD HISTORY OF PRESENT ILLNESS: Patient recently post presented w/ RUQ abdominal pain and nausea and vomiting and e and m in the ER previously; she was found to have cholelithiasis while she was ; she c/o mild pain. PMHx: as above PSHx: none Home Medications Medication Instructions Recorded Unobtainable [Unobtainable] 05/26/16 Allergies Allergy/AdvReac Type Severity Reaction Status Date / Time No Known Allergies Allergy Verified 05/25/16 19:25 REVIEW OF SYSTEMS: CONSTITUTIONAL: Absent: fever, chills, diaphoresis, generalized weakness, malaise, loss of appetite, weight change CARDIOVASCULAR: Absent: chest pain, syncope, palpitations, irregular heart rate, lightheadedness , peripheral edema RESPIRATORY: Absent: cough, shortness of breath, dyspnea with exertion, wheezing, stridor, hemoptysis GASTROINTESTINAL: as above GENITOURINARY: Absent: dysuria, frequency, urgency, hesitancy, hematuria, flank pain, genital pain MUSCULOSKELETAL: Absent: myalgia, arthralgia, joint swelling, back pain, neck pain SKIN: Absent: rash, itching, pallor HEMATOLOGIC/IMMUNOLOGIC: Absent: easy bleeding, easy bruising, lymphadenopathy NEUROLOGIC: Absent: headache, focal weakness, paresthesias, dizziness, unsteady gait, seizure, mental status changes, bladder or bowel incontinence PSYCHIATRIC: Absent: anxiety, depression, suicidal or homicidal ideation, hallucinations. PHYSICAL EXAM: GENERAL: Awake, alert, and fully oriented, in no acute distress. HEAD: Normal with no signs of trauma. EYES: PERRL, sclera anicteric, conjunctiva clear. NECK: Normal ROM, supple without lymphadenopathy, JVD, or masses. ABDOMEN: Soft, minimally tender to dep palpation in the RUQ, not distended, normoactive bowel sounds, no guarding, no rebound, no masses. No organomegaly. No hernias MUSCULOSKELETAL: Normal ROM at all joints. No bony deformities or tenderness. No CVA tenderness. UPPER EXTREMITIES: 2+ pulses, warm, well-perfused. No cyanosis. Cap refill <2 seconds. No peripheral edema. LOWER EXTREMITIES: 2+ pulses, warm, well-perfused. No calf tenderness. No peripheral edema. NEUROLOGICAL: Normal speech, gait not observed. PSYCH: Cooperative. Good eye contact. Appropriate mood and affect. SKIN: Warm, dry, normal turgor, no rashes or lesions noted. Vital Signs Temperature 97.9 F 05/27/16 05:49 Pulse Rate 47 L 05/27/16 05:49 Respiratory Rate 20 05/27/16 05:49 Blood Pressure 111/73 05/27/16 05:49 O2 Sat by Pulse Oximetry (%) 99 05/26/16 20:35 Lab Results WBC 6.2 K/mm3 (4.0-10.0) 05/27/16 06:45 RBC 4.67 M/mm3 (3.60-5.2) 05/27/16 06:45 Hgb 12.8 GM/dL (10.7-15.3) 05/27/16 06:45 Hct 38.7 % (32.4-45.2) 05/27/16 06:45 MCV 82.7 fl (80-96) 05/27/16 06:45 MCHC 33.0 g/dl (32.0-36.0) 05/27/16 06:45 RDW 14.7 % (11.6-15.6) 05/27/16 06:45 Plt Count 284 K/MM3 (134-434) 05/27/16 06:45 Sodium 140 mmol/L (136-145) 05/27/16 06:45 Potassium 4.2 mmol/L (3.5-5.1) 05/27/16 06:45 Chloride 103 mmol/L (98-107) 05/27/16 06:45 Carbon Dioxide 30 mmol/L (21-32) 05/27/16 06:45 Anion Gap 7 (8-16) L 05/27/16 06:45 BUN 5 mg/dL (7-18) L 05/27/16 06:45 Creatinine 0.8 mg/dL (0.55-1.02) 05/27/16 06:45 Random Glucose 72 mg/dL (74-106) L 05/27/16 06:45 Calcium 9.2 mg/dL (8.5-10.1) 05/27/16 06:45 Blood Type B POSITIVE 05/25/16 20:43 Antibody Screen Negative 05/25/16 20:14 INR 1.12 (0.82-1.09) 05/27/16 06:45 w/u to date reviewed; lipase was found to be elevated as were LFT's mildly; WBC wnl. IMP: gallstone pancreatitis cholelithiasis PLAN: Suggest NPO/IVF/trend LFT's; advise lap saul once LFT's and amylase/ lipase normalized; d/w patient Perico Pink MD FACS Visit type - Case Type Case Type: ED Admission - Emergency Emergency Visit: Yes ED Registration Date: 05/26/16 Care time: The patient presented to the Emergency Department on the above date and was hospitalized for further evaluation of their emergent condition. - New patient This patient is new to me today: Yes Date on this admission: 05/27/16
--- NOTE | 2016-05-27 12:19 | PN ---
Teaching Attending Note Name of Resident: Anu Yepez ATTENDING PHYSICIAN STATEMENT I saw and evaluated the patient. I reviewed the resident's note and discussed the case with the resident. I agree with the resident's findings and plan as documented. SUBJECTIVE:pain improved. continues to have residual RUQ/epigastric tendereness. not related to food. states shes been having this pain on and off for the past 3 months. she says the pain she came in was similar to that pain but worse. denies CP, SOB, fever, chills, N/V/C/D. currently OBJECTIVE: Last Vital Signs Temp Pulse Resp BP Pulse Ox 97.9 F 47 L 20 111/73 99 05/27/16 05:49 05/27/16 05:49 05/27/16 05:49 05/27/16 05:49 05/26/16 20:35 general NAD CV S1 S2 RRR no murmur/rub/gallop lungs CTA B/l no wheezing/rales/rhonchi Abdomen RUQ/epigastric tenderness +fischer sign. ASSESSMENT AND PLAN: 20yo F 3 weeks ago arrived to the ER and was admitted for further evaluation of their emergent condition 1. ACute hepatitis- likely recent passage of gallstone. concern for developing gallstone pancreatitis with elevated lipase in the setting of epigastric pain. started LR at 125mg/h. pain control. plan for HIDA scan today. will consult surgery as will require cholecystectomy on this admission. LFT now trending down. will monitor closely. copper/AILEEN/hepatitis level pending. iron level not high suggestive of hemochromotosis. pain and nausea control 2. - currently pumping. informed to pump and dump for now. will determine when safe to save breastmilk. python consultant 3. DVT ppx- start lovenox. increase risk due to recent .
--- NOTE | 2016-05-27 17:34 | PN ---
GI Progress Note Subjective: No acute events Just came back from HIDA scan RUQ pain persists but improved from admission - Objective Vital Signs: Vital Signs Temperature 98.1 F 05/27/16 13:55 Pulse Rate 49 L 05/27/16 13:55 Respiratory Rate 20 05/27/16 13:55 Blood Pressure 108/74 05/27/16 13:55 O2 Sat by Pulse Oximetry (%) 98 05/27/16 09:00 Constitutional: Calm Eyes: No: Sclera Icterus Cardiovascular: Yes: Bradycardia. No: Murmur Respiratory: Yes: CTA Bilaterally Gastrointestinal Inspection: No: Distention ...Auscultate: Yes: Normoactive Bowel Sounds ...Palpate: Yes: Tenderness (mild TTP RUQ) Edema: No Neurological: Yes: Alert, Oriented Labs: CBC, BMP 05/27/16 06:45 05/27/16 06:45 INR, PTT INR 1.12 (0.82-1.09) 05/27/16 06:45 Hepatic Panel Total Bilirubin 0.6 mg/dL (0.2-1.0) 05/27/16 06:45 Direct Bilirubin 0.2 mg/dL (0.0-0.2) 05/27/16 06:45 AST 63 U/L (15-37) H D 05/27/16 06:45 ALT 124 U/L (12-78) H D 05/27/16 06:45 Alkaline Phosphatase 175 U/L (45-117) H 05/27/16 06:45 Albumin 3.8 g/dl (3.4-5.0) 05/27/16 06:45 Laboratory Tests 05/26/16 15:08 Lipase 3026 H Problem List - Problems (1) Biliary colic Assessment/Plan: with suspected gallstone pancreatitis clinically improved from admission and LFTs normalizing. suspect passed CBD stone - Await HIDA - Plan per surgery for cholecystectomy. Given that LFt's are improving, intraop cholangiogram as opposed to ERCP would be a reasonable approach to assess CBD. If it cannot be performed then pre-op MRCP Code(s): K80.50 - CALCULUS OF BILE DUCT W/O CHOLANGITIS OR CHOLECYST W/O OBST
--- NOTE | 2016-05-27 18:41 | PN ---
Physical Exam: SUBJECTIVE: Patient seen and examined at bed side. reports mild RUQ pain, not asking for pain meds. siting comfortable, tolerating clear liquids well. 3x BM Elevated Amylase, dr. Muse suspected gallstone pancreatitis with passing of stone, ordered Hida scan, surgical consult, denies any n/v/d/c, cp, fevers, chills, sob. OBJECTIVE: Vital Signs Period Temp Pulse Resp BP Sys/Gaines Pulse Ox Last 24 Hr 97.9 F-98.6 F 44-51 20-20 108-124/63-74 98-99 GENERAL: The patient is awake, alert, and fully oriented, in no acute distress. eating clear liquid diet comfortably no pain. HEAD: Normal with no signs of trauma. EYES: extraocular movements intact, sclera anicteric, conjunctiva clear. NECK: Trachea midline, full range of motion, supple. LUNGS: Breath sounds equal, clear to auscultation bilaterally, no wheezes, no crackles, no accessory muscle use. HEART: Regular rate and rhythm, S1, S2 without murmur, rub or gallop. ABDOMEN: Soft, tender RUQ, +fischer sign, nondistended, normoactive bowel sounds , no guarding, no rebound, no hepatosplenomegaly, no masses. EXTREMITIES: 2+ pulses, warm, well-perfused, no edema. NEUROLOGICAL: Normal speech, gait not observed. PSYCH: Normal mood, normal affect. SKIN: Jaundice, Warm, dry, normal turgor, no rashes or lesions noted Laboratory Results - last 24 hr 05/26/16 05/26/16 05/27/16 09:30 09:30 06:45 WBC 6.2 RBC 4.67 Hgb 12.8 Hct 38.7 MCV 82.7 MCHC 33.0 RDW 14.7 Plt Count 284 MPV 7.8 Neutrophils % 56.2 Lymphocytes % 32.3 Monocytes % 6.8 Eosinophils % 4.2 D Basophils % 0.5 INR PTT (Actin FS) Sodium Potassium Chloride Carbon Dioxide Anion Gap BUN Creatinine Creat Clearance w eGFR Random Glucose Calcium Iron 168 H Total Bilirubin Direct Bilirubin AST ALT Alkaline Phosphatase Total Protein Albumin Hepatitis A IgM Ab Negative Hep Bs Antigen Negative Hep B Core IgM Ab Negative Hepatitis C Ab (EIA) 0.2 05/27/16 05/27/16 05/27/16 06:45 06:45 06:45 WBC RBC Hgb Hct MCV MCHC RDW Plt Count MPV Neutrophils % Lymphocytes % Monocytes % Eosinophils % Basophils % INR 1.12 PTT (Actin FS) 31.2 Sodium 140 Potassium 4.2 Chloride 103 Carbon Dioxide 30 Anion Gap 7 L BUN 5 L Creatinine 0.8 Creat Clearance w eGFR > 60 Random Glucose 72 L Calcium 9.2 Iron Total Bilirubin 0.6 Direct Bilirubin 0.2 AST 63 H D ALT 124 H D Alkaline Phosphatase 175 H Total Protein 7.3 Albumin 3.8 Hepatitis A IgM Ab Hep Bs Antigen Hep B Core IgM Ab Hepatitis C Ab (EIA) Active Medications Generic Name Dose Route Start Last Admin Trade Name Freq PRN Reason Stop Dose Admin Al Hydroxide/Mg Hydroxide 30 ml 05/26/16 07:50 Mylanta Oral Suspension - PO Q6H PRN DYSPEPSIA Hydromorphone HCl 1 mg 05/26/16 14:40 Dilaudid Injection - IVPB Q4H PRN PAIN Lactated Ringer's 1,000 mls @ 125 mls/hr 05/27/16 08:30 05/27/16 09:34 Lactated Ringers Solution IV 125 mls/hr ASDIR JAY Administration Ondansetron HCl 8 mg 05/26/16 07:37 Zofran Injection IVPB Q6H PRN NAUSEA ASSESSMENT/PLAN: 20yf pmh of gallstones during , 4 weeks ago present s to ED with RUQ pain and vomiting. LFT now trending down. will monitor closely. iron level not high suggestive of hemochromotosis. pain and nausea control clinically improving, afebrile, no leukocytosis (1) possible gallstone pancreatitis: elevated lipase, abd pain, 2/2 to passing gall stone Hida scan today starte NR IFVF suregery and GI consulted copper/AILEEN/hepatitis level pending. (2) Elevated transaminase level 2/2 acute hepatitis 2/2 passing of gall stone( prior biliary obstruction): trending done normal CBF and contracted GB Plan per surgery for cholecystectomy. agree with inlight of "LFt's are improving, intraop cholangiogram as opposed to ERCP would be a reasonable approach to assess CBD. If it cannot be performed then pre-op MRCP" per GI attending awaiting HIDA (3) Gallstones (4) jaundice: Hyperbilirubinemia: trending down (5) GERD (gastroesophageal reflux disease) 2. - currently pumping. informed to pump and dump for now. will determine when safe to save breastmilk. 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 - New Patient This patient is new to me today: Yes Date on this admission: 05/26/16 - Critical Care Critical Care patient: No
[2016-05-28] MEDS: LACTATED RINGERS SOLUTION 1,000 ML IV SCH ×3 (03:56→22:19)
--- NOTE | 2016-05-28 07:31 | PN ---
<GrossmanPipo pineda - Last Filed: 05/28/16 17:53> Physical Exam: ATTENDING PHYSICIAN STATEMENT I saw and evaluated the patient. I reviewed the resident's note and discussed the case with the resident. I agree with the resident's findings and plan as documented. SUBJECTIVE: seen and evaluated at the bedside OBJECTIVE: resting comfortably ASSESSMENT AND PLAN: 20 year old woman with gallstones, 3 weeks post admitted for acute hepatitis Hepatitis -LFT's trending down -was likely transient blockage with gall stone as LFT's trending down and MRCP shows no ductal dilation -follow up with surgery for possible cholecystectomy -alesha prn <Anu Yepez - Last Filed: 06/25/16 22:06> Physical Exam: SUBJECTIVE: Patient seen and examined at bed side. reports mild RUQ pain, not asking for pain meds. siting comfortable, + BM denies any n/v/d/c, cp, fevers, chills, sob. For MRCP OBJECTIVE: Vital Signs Period Temp Pulse Resp BP Sys/Gaines Pulse Ox Last 24 Hr 97.7 F-98.3 F 48-62 16-20 105-124/56-74 97-98 GENERAL: The patient is awake, alert, and fully oriented, in no acute distress. ambulating well with no acute disress. HEAD: Normal with no signs of trauma. EYES: extraocular movements intact, sclera anicteric, conjunctiva clear. NECK: Trachea midline, full range of motion, supple. LUNGS: Breath sounds equal, clear to auscultation bilaterally, no wheezes, no crackles, no accessory muscle use. HEART: Regular rate and rhythm, S1, S2 without murmur, rub or gallop. ABDOMEN: Soft, mild tender RUQ, nondistended, normoactive bowel sounds, no guarding, no rebound, no hepatosplenomegaly, no masses. EXTREMITIES: 2+ pulses, warm, well-perfused, no edema. NEUROLOGICAL: Normal speech. gait normal. PSYCH: Normal mood, normal affect. SKIN: Jaundice improving , Warm, dry, normal turgor, Laboratory Results - last 24 hr 05/26/16 05/26/16 05/27/16 09:30 09:30 06:45 WBC 6.2 RBC 4.67 Hgb 12.8 Hct 38.7 MCV 82.7 MCHC 33.0 RDW 14.7 Plt Count 284 MPV 7.8 Neutrophils % 56.2 Lymphocytes % 32.3 Monocytes % 6.8 Eosinophils % 4.2 D Basophils % 0.5 INR PTT (Actin FS) Sodium Potassium Chloride Carbon Dioxide Anion Gap BUN Creatinine Creat Clearance w eGFR Random Glucose Calcium Total Bilirubin Direct Bilirubin AST ALT Alkaline Phosphatase Total Protein Albumin AILEEN Screen Negative Hepatitis A IgM Ab Negative Hep Bs Antigen Negative Hep B Core IgM Ab Negative Hepatitis C Ab (EIA) 0.2 05/27/16 05/27/16 05/27/16 06:45 06:45 06:45 WBC RBC Hgb Hct MCV MCHC RDW Plt Count MPV Neutrophils % Lymphocytes % Monocytes % Eosinophils % Basophils % INR 1.12 PTT (Actin FS) 31.2 Sodium 140 Potassium 4.2 Chloride 103 Carbon Dioxide 30 Anion Gap 7 L BUN 5 L Creatinine 0.8 Creat Clearance w eGFR > 60 Random Glucose 72 L Calcium 9.2 Total Bilirubin 0.6 Direct Bilirubin 0.2 AST 63 H D ALT 124 H D Alkaline Phosphatase 175 H Total Protein 7.3 Albumin 3.8 AILEEN Screen Hepatitis A IgM Ab Hep Bs Antigen Hep B Core IgM Ab Hepatitis C Ab (EIA) Active Medications Generic Name Dose Route Start Last Admin Trade Name Freq PRN Reason Stop Dose Admin Al Hydroxide/Mg Hydroxide 30 ml 05/26/16 07:50 Mylanta Oral Suspension - PO Q6H PRN DYSPEPSIA Hydromorphone HCl 1 mg 05/26/16 14:40 Dilaudid Injection - IVPB Q4H PRN PAIN Lactated Ringer's 1,000 mls @ 125 mls/hr 05/27/16 08:30 05/28/16 03:56 Lactated Ringers Solution IV 125 mls/hr ASDIR JAY Administration Ondansetron HCl 8 mg 05/26/16 07:37 Zofran Injection IVPB Q6H PRN NAUSEA HIDA acan: There is normal homogeneous perfusion of the liver with no evidence of focal lesion. Extraction of tracer from the blood pool by the liver parenchyma is normal. Tracer appears promptly and within the biliary tree. The gallbladder begins to fill by 15 minutes post injection of tracer and fill adequately. Tracer in the small bowel is first seen at 30 minutes. IMPRESSION: Filling of the gallbladder excludes acute cystic duct obstruction ASSESSMENT/PLAN: 20yf pmh of gallstones during , 4 weeks ago present s to ED with RUQ pain and vomiting. LFT now trending down. will monitor closely. iron level not high suggestive of hemochromotosis. pain and nausea control clinically improving, afebrile, no leukocytosis (1) possible gallstone pancreatitis: elevated lipase resolved, LFTs improved, symptoms improving, clinically stable. I suspect gallstone has passed. awaiting MRI w/o cont /MRCP cont NR IFVF copper/AILEEN/hepatitis level pending. (2) Billiary collics:Elevated transaminase level 2/2 acute hepatitis 2/2 passing of gall stone(prior biliary obstruction): trending done normal CBF and contracted GB Plan per surgery for cholecystectomy. will contact surgery for timing and plan. Agree with inlight of "LFt's are improving, intraop cholangiogram as opposed to ERCP would be a reasonable approach to assess CBD. If it cannot be performed then pre-op MRCP" per GI attending (3) Gallstones (4) jaundice:resolving, Hyperbilirubinemia: trending down (5) GERD (gastroesophageal reflux disease) 2. - currently pumping. informed to pump and dump for now. will determine when safe to save breastmilk. computer consultant DVT prof: inc risk with started on lovenox i dispo: plan for surgery. Visit type - Emergency Visit Emergency Visit: Yes ED Registration Date: 05/26/16 Care time: The patient presented to the Emergency Department on the above date and was hospitalized for further evaluation of their emergent condition. - New Patient This patient is new to me today: No - Critical Care Critical Care patient: No
[2016-05-28 07:45] LABS: BASOPHIL 0.5 % (0-2.0); EOSINOPHIL 2.7 % (0-4.5); MCH 27.6 pg (25.7-33.7); MCHC 33.4 g/dl (32.0-36.0); MEAN CELL VOLUME 82.4 fl (80-96); MEAN PLT VOLUME 7.6 fl (7.5-11.1); PLATELET COUNT 253 K/MM3 (134-434); WHITE BLOOD COUNT 6.5 K/mm3 (4.0-10.0)
[2016-05-28 08:59] LABS: ALBUMIN 3.3 g/dl (3.4-5.0); BILIRUBIN,DIRECT 0.2 mg/dL (0.0-0.2); BILIRUBIN,TOTAL 0.7 mg/dL (0.2-1.0); TOT PROT 6.4 g/dl (6.4-8.2)
--- NOTE | 2016-05-28 14:13 | PN ---
GI Progress Note Subjective: Mild upper / ruq pain No acute events No N/V No fevers reported - Objective Vital Signs: Vital Signs Temperature 98.4 F 05/28/16 09:11 Pulse Rate 43 L 05/28/16 09:11 Respiratory Rate 18 05/28/16 09:11 Blood Pressure 121/70 05/28/16 09:11 O2 Sat by Pulse Oximetry (%) 97 05/27/16 21:00 Constitutional: Calm Eyes: No: Sclera Icterus Cardiovascular: Yes: Regular Rate and Rhythm Respiratory: Yes: CTA Bilaterally Gastrointestinal Inspection: No: Distention ...Auscultate: Yes: Normoactive Bowel Sounds ...Palpate: Yes: Tenderness (Mild TTP RUQ/epigastrium) ...Percussion: No: Tympanitic Edema: No Neurological: Yes: Alert, Oriented Labs: CBC, BMP 05/28/16 06:00 05/27/16 06:45 INR 1.12 (0.82-1.09) 05/27/16 06:45 Hepatic Panel Total Bilirubin 0.7 mg/dL (0.2-1.0) 05/28/16 06:00 Direct Bilirubin 0.2 mg/dL (0.0-0.2) 05/28/16 06:00 AST 31 U/L (15-37) D 05/28/16 06:00 ALT 79 U/L (12-78) H D 05/28/16 06:00 Alkaline Phosphatase 137 U/L (45-117) H D 05/28/16 06:00 Albumin 3.3 g/dl (3.4-5.0) L 05/28/16 06:00 05/26/16 05/28/16 15:08 06:00 Lipase 3026 H 184 Problem List - Problems (1) Biliary colic Assessment/Plan: With suspected gallstone pancreatitis / passed stone Clinically improved LFTs improved - Timing of cholecystectomy per surgery. - Awaiting MRCP. if cannot be performed prior to surgery, intraop cholangiogram would be ideal Code(s): K80.50 - CALCULUS OF BILE DUCT W/O CHOLANGITIS OR CHOLECYST W/O OBST
--- NOTE | 2016-05-28 16:07 | PN ---
Progress Note (short form) - Note Progress Note: 20 yo female with gallstone pancreatitis. Patient seen and examined with Dr. Pink. Resting comfortably. Ambulating. Voiding. Denies n/v/f/c, CP or SOB. Last Vital Signs Temp Pulse Resp BP Pulse Ox 98.1 F 47 L 18 109/59 97 05/28/16 14:19 05/28/16 14:19 05/28/16 14:19 05/28/16 14:19 05/27/16 21:00 CBC, BMP 05/28/16 06:00 05/27/16 06:45 Hepatic Panel Total Bilirubin 0.7 mg/dL (0.2-1.0) 05/28/16 06:00 Direct Bilirubin 0.2 mg/dL (0.0-0.2) 05/28/16 06:00 AST 31 U/L (15-37) D 05/28/16 06:00 ALT 79 U/L (12-78) H D 05/28/16 06:00 Alkaline Phosphatase 137 U/L (45-117) H D 05/28/16 06:00 Albumin 3.3 g/dl (3.4-5.0) L 05/28/16 06:00 Trend 05/26/16 05/28/16 05/28/16 15:08 06:00 06:00 Albumin 3.3 L Lipase 3026 H 184 A/P: Gallstone Pancreatitis Patient on schedule for Lap saul 05/30/16 Medical optimization / clearance for above procedure f/u Type and Screen f/u MRCP and if negative can give clear liquid diet Above discussed with Dr. Pink and agrees
[2016-05-29] MEDS: LACTATED RINGERS SOLUTION 1,000 ML IV SCH (06:06)
--- NOTE | 2016-05-29 14:29 | PN ---
Progress Note (short form) - Note Progress Note: Attending Surgeon: No c/o VSS afebrile abdomen-soft; flat non tender Imaging w/u to date reviewed; lipase WNL; LFT's note IMP:resolving gallstone pancreatitis PLAN: lap saul 05/30/16; r/b/t d/w her; conversion to an open procedure discussed; will check LFT's and amylase again pre-op. Perico Pink MD FACS
--- NOTE | 2016-05-29 14:40 | SPA.PREOP ---
- PRE-OP NOTE Dx: Gallstone pancreatitis Planned Procedure: Lap saul possible open Surgeon: Perico Pink Consent: To be obtained after surgeon explained all risks, benefits and alternatives. Last Vital Signs Temp Pulse Resp BP Pulse Ox 98.4 F 53 L 18 121/72 99 05/29/16 13:54 05/29/16 13:54 05/29/16 13:54 05/29/16 13:54 05/28/16 20:11 Labs WBC 6.5 K/mm3 (4.0-10.0) 05/28/16 06:00 RBC 4.47 M/mm3 (3.60-5.2) 05/28/16 06:00 Hgb 12.3 GM/dL (10.7-15.3) 05/28/16 06:00 Hct 36.9 % (32.4-45.2) 05/28/16 06:00 MCV 82.4 fl (80-96) 05/28/16 06:00 MCHC 33.4 g/dl (32.0-36.0) 05/28/16 06:00 RDW 15.0 % (11.6-15.6) 05/28/16 06:00 Plt Count 253 K/MM3 (134-434) 05/28/16 06:00 Sodium 140 mmol/L (136-145) 05/27/16 06:45 Potassium 4.2 mmol/L (3.5-5.1) 05/27/16 06:45 Chloride 103 mmol/L (98-107) 05/27/16 06:45 Carbon Dioxide 30 mmol/L (21-32) 05/27/16 06:45 Anion Gap 7 (8-16) L 05/27/16 06:45 BUN 5 mg/dL (7-18) L 05/27/16 06:45 Creatinine 0.8 mg/dL (0.55-1.02) 05/27/16 06:45 Random Glucose 72 mg/dL (74-106) L 05/27/16 06:45 Calcium 9.2 mg/dL (8.5-10.1) 05/27/16 06:45 Blood Type B POSITIVE 05/29/16 07:00 Antibody Screen Negative 05/29/16 07:00 INR 1.12 (0.82-1.09) 05/27/16 06:45 - ASSESSMENT/PLAN 1. Make NPO after midnight except po meds 2. GI/DVT PPX 3. Medical optimization / clearance Problem List - Problems (1) Gallstone pancreatitis Assessment/Plan: NPO after midnight except po meds f/u Amylase and LFTs Medical optimization / clearance Code(s): K85.1 - BILIARY ACUTE PANCREATITIS * DO NOT USE * Visit type - Case Type Case Type: ED Admission - Emergency Emergency Visit: Yes ED Registration Date: 05/26/16 Care time: The patient presented to the Emergency Department on the above date and was hospitalized for further evaluation of their emergent condition.
--- NOTE | 2016-05-29 16:05 | PN ---
<MarleniAnu rice - Last Filed: 05/29/16 15:50> Physical Exam: SUBJECTIVE: Patient seen and examined at bed side. reports mild RUQ pain, not asking for pain meds. siting comfortable, denies any fevers, chills, nausea, vomiting, FINNEGAN, CP, sob. + BM voiding. called nuclear medicine and patient and not to have contact with her Baby until after 48hrs HIDA scan. OBJECTIVE: Vital Signs Period Temp Pulse Resp BP Sys/Gaines Pulse Ox Last 24 Hr 97.6 F-98.8 F 48-62 18-18 98-126/67-82 99 GENERAL: The patient is awake, alert, and fully oriented, in no acute distress. HEAD: Normal with no signs of trauma. EYES: extraocular movements intact, sclera anicteric, conjunctiva clear. NECK: Trachea midline, full range of motion, supple. LUNGS: Breath sounds equal, clear to auscultation bilaterally, no wheezes, no crackles, no accessory muscle use. HEART: Regular rate and rhythm, S1, S2 without murmur, rub or gallop. ABDOMEN: Soft, mild tender RUQ, nondistended, normoactive bowel sounds, no guarding, no rebound, no hepatosplenomegaly, no masses. EXTREMITIES: 2+ pulses, warm, well-perfused, no edema. NEUROLOGICAL: Normal speech. gait normal. PSYCH: Normal mood, normal affect. SKIN: Jaundice improving , Warm, dry, normal turgor, Laboratory Results - last 24 hr 05/26/16 05/29/16 09:30 07:00 Serum Copper 136 Blood Type B POSITIVE Antibody Screen Negative Active Medications Generic Name Dose Route Start Last Admin Trade Name Freq PRN Reason Stop Dose Admin Al Hydroxide/Mg Hydroxide 30 ml 05/26/16 07:50 Mylanta Oral Suspension - PO Q6H PRN DYSPEPSIA Lactated Ringer's 1,000 mls @ 125 mls/hr 05/27/16 08:30 05/29/16 06:06 Lactated Ringers Solution IV 125 mls/hr ASDIR JAY Administration Ondansetron HCl 8 mg 05/26/16 07:37 Zofran Injection IVPB Q6H PRN NAUSEA ASSESSMENT/PLAN: Medical optimization / clearance ASSESSMENT/PLAN: 20yf pmh of gallstones during , 4 weeks ago present s to ED with RUQ pain and vomiting. LFT now trending down. will monitor closely.clinically improving, afebrile, no leukocytosis (1) possible gallstone pancreatitis: elevated lipase resolved, LFTs improved, symptoms improving, clinically stable. I suspect gallstone has passed. cont NR IFVF copper wNL, AILEEN neg, hepatitis level unremarkable (2) Billiary collics:Elevated transaminase level 2/2 acute hepatitis 2/2 passing of gall stone(prior biliary obstruction): trending done Plan per surgery for cholecystectomy tomorrow. (3) Gallstones: surgery tomorrow (4) jaundice:resolving, Hyperbilirubinemia: resolved (5) GERD (gastroesophageal reflux disease) 2. - currently pumping. informed to pump and dump for now. will determine when safe to save breastmilk. library consultant DVT prof: inc risk with started on lovenox i NPO after midnight. dispo: plan for surgery. patient is low risk for intermediate risk procedure and is medically optimized. Visit type - Emergency Visit Emergency Visit: Yes ED Registration Date: 05/26/16 Care time: The patient presented to the Emergency Department on the above date and was hospitalized for further evaluation of their emergent condition. - New Patient This patient is new to me today: No - Critical Care Critical Care patient: No <GrossmanPipo pineda - Last Filed: 05/29/16 16:40> Physical Exam: ATTENDING PHYSICIAN STATEMENT I saw and evaluated the patient. I reviewed the resident's note and discussed the case with the resident. I agree with the resident's findings and plan as documented. SUBJECTIVE: seen and evaluated at the bedside OBJECTIVE: resting comfortably ASSESSMENT AND PLAN: 20 year old woman with gallstones, 3 weeks post admitted for acute hepatitis Hepatitis -LFT's trending down -was likely transient blockage with gall stone as LFT's trending down and MRCP shows no ductal dilation -for cholecystectomy
[2016-05-29 16:07] LABS: ALBUMIN 3.8 g/dl (3.4-5.0)
[2016-05-29 16:11] LABS: BILIRUBIN,DIRECT 0.2 mg/dL (0.0-0.2); BILIRUBIN,TOTAL 0.7 mg/dL (0.2-1.0); TOT PROT 7.2 g/dl (6.4-8.2)
[2016-05-30] MEDS: LACTATED RINGERS SOLUTION 1,000 ML IV SCH ×3 (03:22→17:12)
[2016-05-30 08:16] LABS: MCH 27.3 pg (25.7-33.7); MCHC 33.1 g/dl (32.0-36.0); MEAN CELL VOLUME 82.4 fl (80-96); MEAN PLT VOLUME 7.9 fl (7.5-11.1); PLATELET COUNT 265 K/MM3 (134-434); RDW 15.3 % (11.6-15.6); WHITE BLOOD COUNT 6.2 K/mm3 (4.0-10.0)
[2016-05-30 08:30] LABS: INR 1.21 (0.82-1.09); PROTHROMBIN TIME (PATIENT) 13.4 SEC (9.98-11.88)
[2016-05-30 08:33] LABS: ALBUMIN 3.6 g/dl (3.4-5.0); ANION GAP 13 (8-16); BILIRUBIN,TOTAL 0.7 mg/dL (0.2-1.0); CALCIUM 9.3 mg/dL (8.5-10.1); CO2 26 mmol/L (21-32); CREATININE 0.6 mg/dL (0.55-1.02); GLUCOSE,RANDOM 70 mg/dL (74-106); SGOT/AST 22 U/L (15-37); SGPT/ALT 53 U/L (12-78); TOT PROT 6.8 g/dl (6.4-8.2)
[2016-05-30 08:34] LABS: ALK PHOS 117 U/L (45-117)
--- NOTE | 2016-05-30 10:49 | PN ---
<Anu Yepez - Last Filed: 05/30/16 10:42> Physical Exam: SUBJECTIVE: Patient seen and examined at bed side. reports mild RUQ pain, not asking for pain meds. siting comfortable, anxious about surgery, excited to see her baby tonight as patient will be over 48hrs after hida. denies any fevers, chills, nausea, vomiting, FINNEGAN, CP, sob. + BM, voiding. patient NPO, for surgery today OBJECTIVE: Vital Signs Period Temp Pulse Resp BP Sys/Gaines Pulse Ox Last 24 Hr 98 F-99 F 48-58 18-18 104-133/62-73 99 GENERAL: The patient is awake, alert, and fully oriented, in no acute distress. HEAD: Normal with no signs of trauma. EYES: extraocular movements intact, sclera anicteric, conjunctiva clear. NECK: Trachea midline, full range of motion, supple. LUNGS: Breath sounds equal, clear to auscultation bilaterally, no wheezes, no crackles, no accessory muscle use. HEART: Regular rate and rhythm, S1, S2 without murmur, rub or gallop. ABDOMEN: Soft, mild tender RUQ, nondistended, normoactive bowel sounds, no guarding, no rebound, no hepatosplenomegaly, no masses. EXTREMITIES: 2+ pulses, warm, well-perfused, no edema. NEUROLOGICAL: Normal speech. gait normal. PSYCH: Normal mood, normal affect. SKIN: no Jaundice resolved , Warm, dry, normal turgor, Laboratory Results - last 24 hr 05/29/16 05/30/16 05/30/16 15:00 07:35 07:35 WBC 6.2 RBC 4.55 Hgb 12.4 Hct 37.5 MCV 82.4 MCHC 33.1 RDW 15.3 Plt Count 265 MPV 7.9 INR 1.21 H Sodium Potassium Chloride Carbon Dioxide Anion Gap BUN Creatinine Creat Clearance w eGFR Random Glucose Calcium Total Bilirubin 0.7 Direct Bilirubin 0.2 AST 28 ALT 65 Alkaline Phosphatase 128 H Total Protein 7.2 Albumin 3.8 Total Amylase 48 Lipase 05/30/16 07:35 WBC RBC Hgb Hct MCV MCHC RDW Plt Count MPV INR Sodium 140 Potassium 3.8 Chloride 101 Carbon Dioxide 26 Anion Gap 13 BUN 2 L* D Creatinine 0.6 D Creat Clearance w eGFR > 60 Random Glucose 70 L Calcium 9.3 Total Bilirubin 0.7 Direct Bilirubin AST 22 D ALT 53 Alkaline Phosphatase 117 Total Protein 6.8 Albumin 3.6 Total Amylase Lipase 177 Active Medications Generic Name Dose Route Start Last Admin Trade Name Fredonaldo PRN Reason Stop Dose Admin Al Hydroxide/Mg Hydroxide 30 ml 05/26/16 07:50 Mylanta Oral Suspension - PO Q6H PRN DYSPEPSIA Lactated Ringer's 1,000 mls @ 125 mls/hr 05/27/16 08:30 05/30/16 03:22 Lactated Ringers Solution IV 125 mls/hr ASDIR JAY Administration Ondansetron HCl 8 mg 05/26/16 07:37 Zofran Injection IVPB Q6H PRN NAUSEA ASSESSMENT/PLAN: 20yf pmh of gallstones during , 4 weeks ago present s to ED with RUQ pain and vomiting. LFT now trending down. will monitor closely.clinically improving, afebrile, no leukocytosis, vitals stable (1) possible gallstone pancreatitis: elevated lipase resolved, LFTs improved, symptoms improving, clinically stable. I suspect gallstone has passed. cont NR IFVF copper wNL, AILEEN neg, hepatitis level unremarkable (2) Billiary collics:Elevated transaminase level 2/2 acute hepatitis 2/2 passing of gall stone(prior biliary obstruction): elevated lever enzymes resolved for surgery for cholecystectomy today (3) Gallstones: for surgery today. (4) jaundice:resolving, Hyperbilirubinemia: resolved (5) GERD (gastroesophageal reflux disease) 2. - currently pumping. informed to pump and dump for now. will determine when safe to save breastmilk. mergers and acquisitions consultant DVT prof: inc risk with on lovenox i NPO dispo: plan for surgery. patient is low risk for intermediate risk procedure and is medically optimized. Visit type - Emergency Visit Emergency Visit: Yes ED Registration Date: 05/26/16 Care time: The patient presented to the Emergency Department on the above date and was hospitalized for further evaluation of their emergent condition. - New Patient This patient is new to me today: No - Critical Care Critical Care patient: No <Pipo Grossman - Last Filed: 05/30/16 14:41> Physical Exam: ATTENDING PHYSICIAN STATEMENT I saw and evaluated the patient. I reviewed the resident's note and discussed the case with the resident. I agree with the resident's findings and plan as documented. SUBJECTIVE: seen and evaluated at the bedside OBJECTIVE: resting comfortably ASSESSMENT AND PLAN: 20 year old woman with gallstones, 3 weeks post admitted for acute hepatitis Hepatitis -LFT's trending down -was likely transient blockage with gall stone as LFT's trending down and MRCP shows no ductal dilation -for cholecystectomy today by surgery team
[2016-05-30] MEDS ORDERED: SUCCINYLCHOLINE CHLORIDE 200 MG/10 ML VIAL ONE (13:47)
[2016-05-30] MEDS ORDERED: ROCURONIUM BROMIDE 50 MG/5 ML VIAL ONE (13:47)
[2016-05-30] MEDS ORDERED: PROPOFOL 20 ML ONE ×2 (13:47)
[2016-05-30] MEDS ORDERED: MIDAZOLAM HCL 2 MG/2 ML SINGLE DOSE VIAL ONE (13:48)
[2016-05-30] MEDS ORDERED: KETOROLAC TROMETHAMINE 30 MG/1 ML VIAL ONE (13:53)
[2016-05-30] MEDS ORDERED: ceFAZolin SODIUM 1 GM VIAL ONE (13:53)
[2016-05-30] MEDS ORDERED: DEXAMETHASONE SOD PHOSPHATE 4 MG/1 ML VIAL ONE (13:53)
[2016-05-30] MEDS ORDERED: oxyCODONE HCL 5 MG TABLET PO PRN ×2 (14:11→15:51)
[2016-05-30] MEDS ORDERED: ONDANSETRON 4 MG/2 ML VIAL IVPUSH PRN ×2 (14:11→15:51)
[2016-05-30] MEDS ORDERED: ceFAZolin SODIUM 1 GM VIAL IVPB ONE (14:25)
[2016-05-30] MEDS ORDERED: BUPIVACAINE HCL/PF 0.5% (5MG/ML) 10 ML VIAL IJ ONE (14:31)
[2016-05-30] MEDS ORDERED: GLYCOPYRROLATE 0.2 MG/1 ML VIAL ONE (15:13)
[2016-05-30] MEDS ORDERED: NEOSTIGMINE METHYLSULFATE 0.5 MG/ML - 10 ML MDV ONE (15:13)
--- NOTE | 2016-05-30 15:41 | OP ---
Operative Note - Note: Operative Date: 05/30/16 Pre-Operative Diagnosis: gallstone pancreatitis/cholelithiasis Operation: lap saul Findings: cholelithiasis Post-Operative Diagnosis: Same as Pre-op Surgeon: Perico Pink Manager Of Software Development: Sita Roberts Anesthesia: General Specimens Removed: gallbladder and contents Estimated Blood Loss (mls): 15 Drains & Tubes with Location: none
[2016-05-30] MEDS ORDERED: MAG HYDROX/AL HYDROX/SIMETH 30 ML UNIT-DOSE CUP PO PRN (15:51)
[2016-05-30] MEDS ORDERED: ONDANSETRON 4 MG/2 ML VIAL IVPB PRN (15:51)
--- NOTE | 2016-05-30 15:55 | SURG ---
Surgery Pinked Edge Sewing Machine Operator Note Pinked Edge Sewing Machine Operator: Sita Roberts PA-C Date of Service: 05/30/16 Diagnosis: gallstone pancreatitis/cholelithiasis Procedure: laparoscopic cholecystectomy I was present for the entirety of the operative procedure. For further detail, please refer to operative report. Visit type - Case Type Case Type: ED Admission
[2016-05-30] MEDS: oxyCODONE HCL 5 MG TABLET PO PRN (18:55)
[2016-05-31] MEDS: LACTATED RINGERS SOLUTION 1,000 ML IV SCH (03:43)
[2016-05-31] MEDS: oxyCODONE HCL 5 MG TABLET PO PRN ×2 (03:44→08:48)
--- NOTE | 2016-05-31 08:40 | PN ---
Progress Note (short form) - Note Progress Note: ANESTHESIA pod#1 s/p lAP Cholecystectomy under GA Patient did well,pain is manageable with PO meds,no N/V,VSS. Clears are started. Ingrid Burton..
--- NOTE | 2016-05-31 09:50 | PN ---
Progress Note (short form) - Note Progress Note: Surgery- Dr. Pink Patient seen and examined. Patient states she is having some abdominal pain, worse with movement, but feeling well. Patient has been tolerating clear liquid diet without nausea and vomiting. She has been urinating without issue. She denies fever/chills. Last Vital Signs Temp Pulse Resp BP Pulse Ox 98.3 F 61 18 143/61 100 05/31/16 08:10 05/31/16 08:10 05/31/16 08:10 05/31/16 08:10 05/30/16 20:21 Exam: Gen: NAD Abd: soft, nondistended, mild tenderness with palp around incisions, port site incisions with dressings clean/dry/intact Problem List - Problems (1) Gallstone pancreatitis Code(s): K85.1 - BILIARY ACUTE PANCREATITIS * DO NOT USE * (2) Gallstones Assessment/Plan: POD#1 s/p laparoscopic cholecystectomy Advance to regular diet Pain control with oral pain medication OOB Instructed to discard breast milk for 24 after general anesthesia Patient feeling well, stable for discharge with instructions to followup with Dr. Pink Discussed with Dr. Pink Code(s): K80.20 - CALCULUS OF GALLBLADDER W/O CHOLECYSTITIS W/O OBSTRUCTION
--- NOTE | 2016-05-31 12:42 | DS ---
Physical Exam: ATTENDING PHYSICIAN STATEMENT I saw and evaluated the patient. I reviewed the resident's note and discussed the case with the resident. I agree with the resident's findings and plan as documented. SUBJECTIVE: seen and evaluated at the bedside OBJECTIVE: resting comfortably ASSESSMENT AND PLAN: 20 year old woman with gallstones, 3 weeks post admitted for acute hepatitis Hepatitis -LFT's trending down -was likely transient blockage with gall stone as LFT's trending down and MRCP shows no ductal dilation -s/p cholecystectomy today by surgery team which pt tolerated well -for discharge today and follow up with surgery as an outpatient -instructed pt that she should not breast feed while taking oxycodone <Pipo Grossman - Last Filed: 05/31/16 14:31> Physical Exam: SUBJECTIVE: Patient seen and examined at bedside. Pt feels well, has some pain at incisional sites from lap saul. Denies N/V/F/C, tolerated diet. OBJECTIVE: Vital Signs Temperature 98.3 F 05/31/16 08:10 Pulse Rate 61 05/31/16 08:10 Respiratory Rate 18 05/31/16 08:10 Blood Pressure 143/61 05/31/16 08:10 O2 Sat by Pulse Oximetry (%) 100 05/30/16 20:21 PHYSICAL EXAM GENERAL: The patient is awake, alert, and fully oriented, in no acute distress. HEAD: Normal with no signs of trauma. EYES: extraocular movements intact, sclera anicteric, conjunctiva clear. NECK: Trachea midline, full range of motion, supple. LUNGS: Breath sounds equal, clear to auscultation bilaterally, no wheezes, no crackles, no accessory muscle use. HEART: Regular rate and rhythm, S1, S2 without murmur, rub or gallop. ABDOMEN: Soft, RUQ and incisional site tenderness nondistended, normoactive bowel sounds, no guarding, no rebound, no hepatosplenomegaly, no masses. Incisional site dresing c/d/i. EXTREMITIES: 2+ pulses, warm, well-perfused, no edema. NEUROLOGICAL: Normal speech. gait normal. PSYCH: Normal mood, normal affect. SKIN: no Jaundice resolved , Warm, dry, normal turgor, LABS Laboratory Results - last 24 hr 05/30/16 13:39 Urine HCG, Qual Negative HOSPITAL COURSE: Date of Admission:05/26/16 Date of Discharge: 05/31/16 20 y/o F w/PMH of gallstones during , delivered approximately 5 weeks ago, presented with N/V, epigastric pain. Found to have elevated LFTs and indirect bilirubin. She had galbladder ultrasound 05/25 which showed cholelithiasis and no CBD dilation. CT abd on 05/26/16 only demonstrated a small amount of free fluid within cul-de-sac and right adenexa as discussed and remainder of exam appeared unremarkable. MRI abd 05/27/16 showed gallstones and gallbladder sludge with no MRI evidence of cholecystitis. No choledochollithisasis or biliary duct dilatation seen. HIDA 05/27/16 showed filling of gall bladder which excluded acute cystic duct obstruction. Pt was seen by GI (Dr. Cruz) who recommended HIDA and MRCP. Pt seen by surgical team (Dr. Pink) and had cholecystectomy on 05/30/16. Pt had uneventful surgery and tolerated diet the next day. Pt was told to f/u with Dr. Pink if she has fevers, drainage from incisions, pain not relieved by pain meds (prescribed oxycodone 5 mg and told not to breast feed if using oxycodone). Pt also told to f/u with Dr. Jackson in 2 weeks. Minutes to complete discharge: 35 <Brodie Puente - Last Filed: 05/31/16 15:28> Discharge Summary Current Active Problems Biliary colic (Acute) Choledocholithiasis (Acute) Elevated transaminase level (Acute) Gallstone pancreatitis (Acute) Hyperbilirubinemia (Acute) RUQ abdominal pain (Acute) - Home Medications Comprehensive Discharge Medication List: Ambulatory Orders Oxycodone HCl 5 mg PO Q6H PRN #20 tablet MDD 20 mg 05/31/16 <Pipo Grossman - Last Filed: 05/31/16 14:31> Reason For Visit: CHOLEDOCHOLITHIASIS Current Active Problems Biliary colic (Acute) Choledocholithiasis (Acute) Elevated transaminase level (Acute) Gallstone pancreatitis (Acute) Hyperbilirubinemia (Acute) RUQ abdominal pain (Acute) - Home Medications Comprehensive Discharge Medication List: Ambulatory Orders Oxycodone HCl 5 mg PO Q6H PRN #20 tablet MDD 20 mg 05/31/16 <Brodie Puente - Last Filed: 05/31/16 15:28> Condition: Stable - Instructions Diet, Activity, Other Instructions: You are being discharged home. Please call and follow up with your primary care provider in one week to assess your health. Please call and follow up with GI DR. Jackson in 2 week. Please avoid taking NSAIDs, smoking, alcohol. Please call and follow up with surgery DR. Pink in one week. 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 Please take your medications as directed. Please reports to the ER or the nearest ER if you have any persistent and worsening symptoms, chest pain, palpitation, fevers, chills, night sweats, Nausea, Vomiting, severe headache dizziness or loss of consciousness. Dr Pink Discharge Instructions Dear ELVIN MITCHELL, Post Operative Instructions Physical activity Resume your normal everyday activity as tolerated no heavy lifting or exercise until seen by your surgeon. You may walk unlimited prashant of and climb stairs. You may resume driving the car when you feel safe and comfortable behind the wheel. Do not drive while taking narcotics. Wound care If you have a bandage, leave it on, for 48-72 hours. After that time discard the outer bandage. If there are tapes on the skin under the outer bandage, leave them in place. They will peel off in the next 7 to 10 days. Do Not Peel them off. You may shower the day after surgery. If there are tapes present on the skin, you may shower over them. Diet There are no dietary restrictions. Eat healthy, high-fiber foods. Drink 6 to 8 glasses of liquid each day. This will assist in keeping your bowels are regular. Pain management You may take Tylenol (acetaminophen) or Ibuprofen (for example, Motrin, Advil etc.) Any pain prescription medication ordered should be taken as prescribed for moderate to severe pain. You will be prescribed oxycodone for severe pain. If you take this medication do not breast feed your baby while taking this medication. Call Dr. Pink for any of the following: Severe pain not relieved by medication Fever of 101 or higher Excessive bleeding or drainage on dressing Call the office at [phone] for an appointment in seven days. Referrals: Perico Pink MD [Staff Physician] - Jose Jackson MD [Staff Physician] - 2 Weeks Disposition: HOME This patient is new to me today: Yes Date on this admission: 05/31/16 Emergency Visit: Yes ED Registration Date: 05/26/16 Care time: The patient presented to the Emergency Department on the above date and was hospitalized for further evaluation of their emergent condition. Critical Care patient: No - Discharge Referral Referred to [facility] No <Brodie Puente - Last Filed: 05/31/16 15:28>
--- NOTE | 2016-05-31 12:52 | OP ---
DATE OF OPERATION: 05/31/2016 PREOPERATIVE DIAGNOSIS: Gallstone pancreatitis and cholelithiasis. POSTOPERATIVE DIAGNOSIS: Gallstone pancreatitis and cholelithiasis. PROCEDURE: Laparoscopic cholecystectomy. SURGEON: Perico Pink MD MAINTENANCE AND CUSTODIAN SUPERVISOR: Sita Roberts PA-C ANESTHESIA: General. OPERATIVE FINDINGS: There was cholelithiasis. The rest of the findings were unremarkable. PROCEDURE: The patient was placed on the operating table in the supine position and, after the induction of general anesthesia; the patient's abdomen was prepped with ChloraPrep and draped in sterile fashion. A timeout was taken and pneumoperitoneum was established above the umbilicus using a Veress needle. Once 15 mmHg pressure was achieved, a 5-mm port was placed and laparoscopy carried out and the previously noted findings were observed. Additional 5-mm lateral ports and the subxiphoid 12-mm port were placed. The gallbladder was then placed on cephalad and lateral traction and dissection was begun in the triangle of Calot, where the cystic duct was identified coursing from the neck of the gallbladder distally towards the common duct. Similarly, the artery was identified by opening the peritoneum medially and it was dissected proximally and distally for length as well. Critical view of safety was taken and then the duct was clipped twice proximally and twice distally with large hemoclips and divided using the Endo Agnieszka. The artery was similarly clipped and divided. The gallbladder was then removed from the liver bed in a retrograde fashion using electrocautery. Prior to removal from the edge of the liver, hemostasis was checked for and noted to be good and then the gallbladder was removed from the edge of the liver, placed in an EndoCatch and brought out through the subxiphoid port. Pneumoperitoneum was reestablished. Irrigation was carried out and hemostasis verified. Next, the lateral and epigastric subxiphoid ports were removed under laparoscopic vision without evidence of bleeding from the port sites. The supraumbilical port was removed and the pneumoperitoneum evacuated and the port sites infiltrated with 0.5% Marcaine. The skin edges were reapproximated with 4-0 Biosyn in a subcuticular continuous fashion. Steri-Strips and Band-Aid dressings were placed. The procedure terminated at this point and the patient aroused from general anesthesia and transferred to the post anesthesia care unit in stable condition awake and alert. ESTIMATED BLOOD LOSS: 15 mL. REPLACEMENTS: Crystalloid. DRAINS: None. SPECIMENS: Gallbladder and contents fresh to Pathology. I, Perico Pink, was physically present in the operating room from the time the patient was placed on the operating room table until she was transferred to the post anesthesia care unit in my accompaniment. MD MARIBEL Schmitz/[id number]
[2016-05-31 13:57] VITALS: BP 115/68; PULSE 60; TEMP 98.1
--- NOTE | 2016-06-03 12:42 | PATH ---
Surgical Pathology Report Patient Name: ELVIN BAUTISTA [facility]. Rec. #: [id number] /Age/Gender: 1995 (Age: 20) / F Account: [id number] [facility] Taken: 05/30/2016 Received: 05/31/2016 Reported: 06/03/2016 Physicians: Perico Pink MD Specimen(s) Received GALLBLADDER Clinical History Cholelithiasis Final Diagnosis GALLBLADDER, CHOLECYSTECTOMY: CHRONIC CHOLECYSTITIS, CHOLELITHIASIS AND CHOLESTEROLOSIS. Electronically Signed Zhang Mishra M.D. Gross Description Received in formalin, labeled "gallbladder" is a 4.5 x 1.8 x 1.8 cm gallbladder with a 0.2 cm in length portion of cystic duct attached. There is a 0.9 cm in greatest dimension ray periductal lymph node present. The outer surface is ray green and varies from smooth to shaggy. The lumen contains green, tenacious bile as well as abundant yellow, bosselated choleliths ranging from 0.1-0.4 cm in greatest dimension. The mucosa is green and velvety. The wall of the gallbladder averages 0.1 cm in thickness. Cycle Director sections including one whole lymph node are submitted in one cassette. 05/31/201605/31/2016
== END 2016-05-31 16:12 | disposition home or self-care (01) | DRG 263 ==
LOC: JER 19:18 → JERBED 05-26 06:03 → J7W 05-26 07:58
PROVIDERS: ADMIT Internal Medicine; ATTEND Internal Medicine
PROC: 0FT44ZZ Resection of Gallbladder, Percutaneous Endoscopic Approach (ICD-10-PCS; principal; 2016-05-31)
DX: K80.10 Calculus of gallbladder with chronic cholecystitis without obstruction (principal); K85.10 Biliary acute pancreatitis without necrosis or infection; K21.9 Gastro-esophageal reflux disease without esophagitis; B17.9 Acute viral hepatitis, unspecified
CPT/HCPCS: 36415; 71020-TC; 74177-TC; 74181-TC; 76705-TC; 78226-TC; 80048; 80053; 80074; 80076; 81003; 81015; 82150; 82248; 82525; 83540; 83690; 84703; 85025; 85027; 85610; 85730; 86038; 86850; 86900; 86901; 88304-TC; 93005; 93010; 94010; 94760; 99284-25; A9537

== ENCOUNTER 2016-07-14 22:27 | Emergency (ER) | payer OTHER ==
[2016-07-14 23:05] VITALS: BP 108/60; PULSE 70; TEMP 99.2; BMI 25.4
--- NOTE | 2016-07-14 23:59 | PDOC ---
History of Present Illness <JorgeGalelyric Gama - Last Filed: 07/15/16 00:40> - General History Source: Patient Exam Limitations: No Limitations - History of Present Illness Initial Comments: 07/15/16 00:43 The patient is a 20 year old female with no significant past medical history, who presents to the ED with a tender and slightly erythematous left breast. Patient reports she has been for 2 to 3 months but has been unable to the past few days. There is no discrete abscess present there. Patient is otherwise healthy and has no other complaints. <Spencer Franco - Last Filed: 07/15/16 00:45> - General Chief Complaint: Wound Stated Complaint: ABSCESS BOIL Time Seen by Provider: 07/14/16 22:42 Past History - Past Medical History Anemia: No Asthma: No Cancer: No Cardiac Disorders: No CVA: No COPD: No CHF: No Dementia: No Diabetes: No GI Disorders: Yes (EPIGASTRIC PAIN, NAUSEA, GALLSTONES) Disorders: No HTN: No Hypercholesterolemia: No Liver Disease: No Suicide Attempt (Hx): No Seizures: No Thyroid Disease: No - Surgical History Neurologic Surgery: No - Immunization History Immunization Up to Date: (UNKNOWN) - Psycho/Social/Smoking Cessation Hx Anxiety: No Suicidal Ideation: No Smoking History: Never smoked Have you smoked in the past 12 months: No Information on smoking cessation initiated: No Hx Alcohol Use: No Drug/Substance Use Hx: No Substance Use Type: None Hx Substance Use Treatment: No <JorgeGalelyric Gama - Last Filed: 07/15/16 00:40> <Spencer Franco - Last Filed: 07/15/16 00:45> - Past Medical History Allergies/Adverse Reactions: Allergies Allergy/AdvReac Type Severity Reaction Status Date / Time No Known Allergies Allergy Verified 07/14/16 22:55 Home Medications: Ambulatory Orders NK [No Known Home Medication] 07/14/16 Review of Systems - Review of Systems Able to Perform ROS?: Yes Comments:: 07/15/16 00:43 CONSTITUTIONAL: Absent: fever, chills, diaphoresis, generalized weakness, malaise, loss of appetite HEENT: Absent: rhinorrhea, nasal congestion, throat pain, throat swelling, difficulty swallowing, mouth swelling, ear pain, eye pain, visual Changes CARDIOVASCULAR: Absent: chest pain, syncope, palpitations, irregular heart rate, lightheadedness , peripheral edema RESPIRATORY: Absent: cough, shortness of breath, dyspnea with exertion, orthopnea, wheezing, stridor, hemoptysis GASTROINTESTINAL: Absent: abdominal pain, abdominal distension, nausea, vomiting, diarrhea, constipation, melena, hematochezia GENITOURINARY: Absent: dysuria, frequency, urgency, hesitancy, hematuria, flank pain, genital pain MUSCULOSKELETAL: Absent: myalgia, arthralgia, joint swelling SKIN: Present: slightly erythematous and tender left breast. Absent: rash, itching, pallor HEMATOLOGIC/IMMUNOLOGIC: Absent: easy bleeding, easy bruising, lymphadenopathy, frequent infections ENDOCRINE: Absent: unexplained weight gain, unexplained weight loss, heat intolerance, cold intolerance NEUROLOGIC: Absent: headache, focal weakness or paresthesias, dizziness, unsteady gait, seizure, mental status changes, bladder or bowel incontinence PSYCHIATRIC: Absent: anxiety, depression, suicidal or homicidal ideation, hallucinations. <Spencer Franco - Last Filed: 07/15/16 00:45> *Physical Exam - Vital Signs Last Vital Signs Temp Pulse Resp BP Pulse Ox 99.2 F 70 20 108/60 98 07/14/16 22:56 07/14/16 22:56 07/14/16 22:56 07/14/16 22:56 07/14/16 22:56 <Gale Patel - Last Filed: 07/15/16 00:40> - Vital Signs Last Vital Signs Temp Pulse Resp BP Pulse Ox 99.2 F 70 20 108/60 98 07/14/16 22:56 07/14/16 22:56 07/14/16 22:56 07/14/16 22:56 07/14/16 22:56 - Physical Exam Comments: 07/15/16 00:45 GENERAL: Well developed, well nourished. Awake and alert. No acute distress. HEENT: Normocephalic, atraumatic. PERRLA, EOMI. No conjunctival pallor. Sclera are non- icteric. Moist mucous membranes. Oropharynx is clear. NECK: Supple. Full ROM. No JVD. Carotid pulses 2+ and symmetric, without bruits. No thyromegaly. No lymphadenopathy. CARDIOVASCULAR: Regular rate and rhythm. No murmurs, rubs, or gallops. Distal pulses are 2+ and symmetric. PULMONARY: No evidence of respiratory distress. Lungs clear to auscultation bilaterally. No wheezing, rales or rhonchi. ABDOMINAL: Soft. Non-tender. Non-distended. No rebound or guarding. No organomegaly. Normoactive bowel sounds. MUSCULOSKELETAL Normal range of motion at all joints. No bony deformities or tenderness. No CVA tenderness. EXTREMITIES: No cyanosis. No clubbing. No edema. No calf tenderness. SKIN: Tenderness and slightly erythematous left breast. Warm and dry. Normal capillary refill. No rashes. No jaundice. NEUROLOGICAL: Alert, awake, appropriate. Cranial nerves 2-12 intact. No deficits to light touch and temperature in face, upper extremities and lower extremities. No motor deficits in the in face, upper extremities and lower extremities. Normoreflexic in the upper and lower extremities. Normal speech. Toes are down-going bilaterally. Gait is normal without ataxia. PSYCHIATRIC: Cooperative. Good eye contact. Appropriate mood and affect. <Spencer Franco - Last Filed: 07/15/16 00:45> *DC/Admit/Observation/Transfer <Gale Patel - Last Filed: 07/15/16 00:40> - Attestations Scribe Attestion: 07/15/16 00:45 Documentation prepared by Spencer Franco, acting as medical researcher for Gale Patel MD. <Spencer Franco - Last Filed: 07/15/16 00:45> Diagnosis at time of Disposition: Mastitis in female, Breast pain - Discharge Dispostion Disposition: HOME - Referrals Referrals: Ena Coffey [Primary Care Provider] - - Patient Instructions Printed Discharge Instructions: DI for Mastitis Additional Instructions: Please follow up with your childbirth and infant care teacher as soon as possible this week Take tylenol for pain Use warm moist compresses on the area
[2016-07-15] MEDS ORDERED: ACETAMINOPHEN 500 MG TABLET (FP) PO ONE (00:43)
[2016-07-15] MEDS ORDERED: ACETAMINOPHEN 325 MG TABLET (FP) ONE (00:46)
== END 2016-07-15 00:53 | disposition home or self-care (01) ==
LOC: JER 22:27
DX: N61.0 Mastitis without abscess (principal)
CPT/HCPCS: 99281-25

== ENCOUNTER 2017-04-30 13:49 | Observation (INO) | payer OTHER ==
--- NOTE | 2017-04-30 14:37 | PDOC ---
Rapid Medical Evaluation Time Seen by Provider: 04/30/17 14:32 Medical Evaluation: Allergies Allergy/AdvReac Type Severity Reaction Status Date / Time No Known Allergies Allergy Verified 07/14/16 22:55 04/30/17 14:32 I have performed a brief in-person evaluation of this patient. The patient presents with a chief complaint of: N/v w/ body aches including epigastric pain. S/p saul, GERD Pertinent physical exam findings:Tachy at 118 and appears uncomfortable w/ minimal ttp to RUQ I have ordered the following:labs/upreg/flu/zantac/maalox The patient will proceed to the ED for further evaluation. 04/30/17 14:38
[2017-04-30 14:38] VITALS: BMI 28.3
[2017-04-30] MEDS ORDERED: RANITIDINE HCL 150 MG TABLET (FP) PO ONE (14:38)
[2017-04-30] MEDS ORDERED: MAG HYDROX/AL HYDROX/SIMETH 355 ML ORAL.SUSP PO ONE (14:38)
[2017-04-30] MEDS ORDERED: SODIUM CHLORIDE 1,000 ML IV STA ×2 (14:39→22:21)
[2017-04-30] MEDS ORDERED: ONDANSETRON 4 MG/2 ML VIAL IVPUSH ONE ×2 (14:40→22:21)
[2017-04-30 14:55] LABS: BASO % 0.1 % (0-2.0); EOS % 0.1 % (0-4.5); HEMATOCRIT 46.1 % (32.4-45.2); HEMOGLOBIN 15.5 GM/dL (10.7-15.3); MCH 29.7 pg (25.7-33.7); MCHC 33.7 g/dl (32.0-36.0); MEAN PLT VOLUME 7.6 fl (7.5-11.1); MONO % 2.1 % (3.8-10.2); NEUT % 95.7 % (42.8-82.8); PLATELET COUNT 251 K/MM3 (134-434); RBC 5.24 M/mm3 (3.60-5.2); RDW 13.3 % (11.6-15.6); WHITE BLOOD COUNT 16.2 K/mm3 (4.0-10.0)
[2017-04-30 14:57] LABS: URINE APPEARANCE CLEAR; URINE BILIRUBIN NEGATIVE (NEGATIVE); URINE BLOOD 2+ (NEGATIVE); URINE COLOR YELLOW; URINE GLUCOSE (UA) NEGATIVE (NEGATIVE); URINE KETONE TRACE (NEGATIVE); URINE LEUK ESTERASE NEGATIVE (NEGATIVE); URINE NITRITE NEGATIVE (NEGATIVE); URINE PROTEIN NEGATIVE (NEGATIVE); URINE UROBILINOGEN NEGATIVE mg/dL (0.2-1.0)
[2017-04-30] MEDS ORDERED: MAG HYDROX/AL HYDROX/SIMETH 30 ML UNIT-DOSE CUP ONE (15:08)
[2017-04-30] MEDS ORDERED: ONDANSETRON 4 MG/2 ML VIAL ONE ×2 (15:08→22:27)
[2017-04-30] MEDS ORDERED: RANITIDINE HCL 150 MG TABLET (FP) ONE (15:08)
[2017-04-30 15:22] LABS: ALBUMIN 4.5 g/dl (3.4-5.0); ALK PHOS 101 U/L (45-117); ANION GAP 10 (8-16); BILIRUBIN,TOTAL 0.8 mg/dL (0.2-1.0); BLOOD UREA NITROGEN 12 mg/dL (7-18); CHLORIDE 102 mmol/L (98-107); CO2 25 mmol/L (21-32); CREATININE 0.6 mg/dL (0.55-1.02); GLUCOSE,RANDOM 93 mg/dL (74-106); LIPASE 152 U/L (73-393); POTASSIUM 3.9 mmol/L (3.5-5.1); SGOT/AST 16 U/L (15-37); SGPT/ALT 24 U/L (12-78); SODIUM 137 mmol/L (136-145); TOT PROT 8.5 g/dl (6.4-8.2)
[2017-04-30 15:53] LABS: EPI CELLS RARE /HPF (FEW); URINE BACTERIA RARE /hpf (NONE SEEN); URINE MUCUS FEW
--- NOTE | 2017-04-30 15:58 | PDOC ---
Attending Attestation - HPI HPI: 04/30/17 16:05 21 y.o female with significant PMHx of cholecystectomy (05/2016) and GERD, who presents to the emergency room complaining of nausea, vomiting, and RUQ pain that began this morning. - Physicial Exam PE: 04/30/17 16:13 Constitutional: Awake, alert, oriented. No acute distress. Head: Normocephalic. Atraumatic Eyes: PERRL. EOMI. Conjunctivae are not pale. ENT: Mucous membranes are moist and intact. Posterior pharynx without exudates or erythema. Uvula midline. Neck: Supple. Full ROM. No lymphadenopathy. Cardiovascular: +tachycardic. Regular rhythm. S1, S2 regular. Distal pulses are 2+ and symmetric. Pulmonary/Chest: No evidence of respiratory distress. Clear to auscultation bilaterally No wheezing, rales or rhonchi. Abdominal: Soft and non-distended. +there is epigastric, RUQ, and RLQ tenderness to palpation. +McBurneys. No rebound, guarding or rigidity. No organomegaly. No palpable masses. Good bowel sounds. Back: No CVA tenderness. Musculoskeletal: No edema. No cyanosis. No clubbing. Full range of motion in all extremities. Nocalf tenderness. Radial/pedal pulses are intact and 2+ bilaterally Skin: Skin is warm and dry. No petechiae. No purpura. Neurological: Alert and oriented to person, place, and time. Cranial nerves II -XII are grossly intact. Normal speech. Strength is grossly symmetric. No sensory deficits. Psychiatric: Good eye contact. Normal interaction, affect and behavior. <Bryanna Perla - Last Filed: 04/30/17 16:13> - Resident Resident Name: Caryl Haro - ED Attending Attestation I have performed the following: I have examined & evaluated the patient, The case was reviewed & discussed with the resident, I agree w/resident's findings & plan, Exceptions are as noted - Medical Decision Making 04/30/17 15:57 I, Dr. Jane Delaney, DO, attest that this document has been prepared under my direction and personally reviewed by me in its entirety. I further attest, that it accurately reflects all work, treatment, procedures and medical decision -making performed by me. 04/30/17 16:14 a/p: 21yo female with RUQ and RLQ pain -will check labs, ua, ucg -will give ivf hydration -nausea control -s/p saul -poss gastroenteritis vs gerd vs acute appendicitis -bedside ultrasound negative for renal pathology -ua negative -discussed labs with the patient, elevated WBC. will obtain CT abd/pelvis -unable to visualize appendix on bedside ultrasound, ttp over mcburney's point -will give another dose of nausea meds -will monitor and reassess -no vaginal complaints. 04/30/17 22:31 pt with persistent vomiting after PO challenge will keep in obs case discussed with Dr. Meraz who accepts pt to service pt agreeable to stay in obs <Jane Delaney - Last Filed: 04/30/17 22:33> Discharge Disposition - Discharge Dispostion Admit: Yes <Jane Delaney - Last Filed: 04/30/17 22:33> - Diagnosis Adnexal cyst, Lung nodule seen on imaging study Abdominal pain Qualifiers: Abdominal location: right upper quadrant Qualified Code(s): R10.11 - Right upper quadrant pain Vomiting with nausea, not intractable Qualifiers: Vomiting type: unspecified Qualified Code(s): R11.2 - Nausea with vomiting, unspecified Leukocytosis Qualifiers: Leukocytosis type: unspecified Qualified Code(s): D72.829 - Elevated white blood cell count, unspecified - Discharge Dispostion Condition at time of disposition: Stable - Referrals Referrals: Tan Curran MD [Staff Physician] - - Patient Instructions Additional Instructions: You were seen in the ER for abdominal pain, nausea, and vomiting. We did blood and urine lab tests and we found an elevated white blood cell count, which could indicate infection, but we were not able to find an infection in your urine, or on your CT scan of your abdomen and pelvis. We did find a small cyst in your pelvis, and a very small lung nodule on the left side. Please follow up with a primary doctor about these two things. We are giving you referral information for the internal medicine clinic so that you can establish primary care and have followup. Please drink plenty of fluids, and take Motrin or Tylenol for the pain. Please return to the ER for any new or worsening symptoms , especially if the abdominal pain worsens again, if you have vomiting and cannot keep down liquids, if you have vaginal discharge or burning on urination , or any other symptoms. - Post Discharge Activity
--- NOTE | 2017-04-30 16:01 | PDOC ---
History of Present Illness - General Chief Complaint: Pain, Acute Stated Complaint: VOMITING Time Seen by Provider: 04/30/17 14:32 History Source: Patient Exam Limitations: No Limitations - History of Present Illness Initial Comments: This is a 21 YOF with h/o GERD and cholecystectomy (05/2016) who p/w RUQ pain, nausea, and three episodes of NBNB vomiting since this morning. The pain is sharp, constant, up to 8/10 at maximum (now at 5/10 since receiving pain medication here in the ED), and radiates to the umbilical region. She additionally notes burning on urination and urinary frequency, as well as an episode of brown watery diarrhea without blood today. She has had decreased appetite today and her last meal was tacos last night. She was unable to keep fluids down today. She has never had this exact pain before and denies having taken any pain medications today. Past History - Past Medical History Allergies/Adverse Reactions: Allergies Allergy/AdvReac Type Severity Reaction Status Date / Time No Known Allergies Allergy Verified 04/30/17 14:33 Home Medications: Ambulatory Orders NK [No Known Home Medication] 07/14/16 Anemia: No Asthma: No Cancer: No Cardiac Disorders: No CVA: No COPD: No CHF: No Dementia: No Diabetes: No GI Disorders: Yes (EPIGASTRIC PAIN, NAUSEA, GALLSTONES) Disorders: No HTN: No Hypercholesterolemia: No Liver Disease: No Seizures: No Thyroid Disease: No - Surgical History Cholecystectomy: Yes Neurologic Surgery: No - Immunization History Immunization Up to Date: Yes (UNKNOWN) - Suicide/Smoking/Psychosocial Hx Smoking History: Never smoked Have you smoked in the past 12 months: No Information on smoking cessation initiated: No Hx Alcohol Use: No Drug/Substance Use Hx: No Substance Use Type: None Hx Substance Use Treatment: No Abd/GI Specific PMHX - Complaint Specific PMHX Colitis: No Diverticulitis: No Gall Bladder Disease: No GERD: No Hepatitis: No Irritable Bowel Synd (IBS): No Pancreatitis: No GI Ulcer Disease: No Review of Systems - Review of Systems Able to Perform ROS?: Yes Constitutional: No: Chills, Fever, Unexplained wgt Loss HEENTM: No: Nose Congestion, Throat Pain Respiratory: No: Cough, Shortness of Breath Cardiac (ROS): Yes: Lightheadedness. No: Chest Pain, Palpitations ABD/GI: Yes: Diarrhea, Nausea, Vomiting, Other (abdominal pain). No: Constipated : Yes: Dysuria, Frequency. No: Burning Musculoskeletal: No: Back Pain, Neck Pain Integumentary: No: Bruising, Rash Neurological: No: Headache, Numbness, Tingling, Weakness Endocrine: No: Unexplained Weight Gain, Unexplained Weight Loss *Physical Exam - Vital Signs Last Vital Signs Temp Pulse Resp BP Pulse Ox 99.1 F 118 H 17 115/60 96 04/30/17 14:34 04/30/17 14:34 04/30/17 14:34 04/30/17 14:34 04/30/17 14:34 - Physical Exam General Appearance: Yes: Nourished, Appropriately Dressed, Mild Distress, Other (nontoxic appearing young female who is answering questions appropriately) HEENT: positive: EOMI, Normal Voice, Hearing Grossly Normal. negative: Scleral Icterus (R), Scleral Icterus (L), Nasal Congestion Neck: positive: Trachea midline, Supple. negative: Tender, Rigid Respiratory/Chest: positive: Lungs Clear, Normal Breath Sounds. negative: Respiratory Distress, Crackles, Rhonchi, Stridor, Wheezing Cardiovascular: positive: Regular Rhythm, Regular Rate, S1, S2. negative: Edema , JVD, Murmur Gastrointestinal/Abdominal: positive: Normal Bowel Sounds, Tender (Moderate RUQ ttp, mild ), Soft. negative: Organomegaly, Pulsatile Mass, Guarding Musculoskeletal: positive: Normal Inspection. negative: CVA Tenderness, Decreased Range of Motion, Vertebral Tenderness Extremity: positive: Normal Capillary Refill, Normal Inspection, Normal Range of Motion. negative: Tender, Cyanosis Integumentary: positive: Normal Color, Dry, Warm. negative: Erythema, Rash, Bruising Neurologic: positive: accounts adjustable clerk II-XII NML intact, Fully Oriented, Alert, Normal Mood/ Affect, Normal Response, Motor Strength /5 ED Treatment Course - LABORATORY CBC & Chemistry Diagram: 04/30/17 14:43 04/30/17 14:43 - ADDITIONAL ORDERS Additional order review: Laboratory Results 04/30/17 04/30/17 04/30/17 14:43 14:43 14:43 WBC 16.2 H D RBC 5.24 H Hgb 15.5 H D Hct 46.1 H D MCV 88.0 MCH 29.7 MCHC 33.7 RDW 13.3 D Plt Count 251 MPV 7.6 Neutrophils % 95.7 H Lymphocytes % 2.0 L D Monocytes % 2.1 L Eosinophils % 0.1 D Basophils % 0.1 Sodium 137 Potassium 3.9 Chloride 102 Carbon Dioxide 25 Anion Gap 10 BUN 12 Creatinine 0.6 Creat Clearance w eGFR > 60 Random Glucose 93 Calcium 9.0 Total Bilirubin 0.8 AST 16 ALT 24 Alkaline Phosphatase 101 Total Protein 8.5 H Albumin 4.5 Lipase 152 Serum , Qual Negative Urine Color Urine Appearance Urine pH Ur Specific [place] Urine Protein Urine Glucose (UA) Urine Ketones Urine Blood Urine Nitrite Urine Bilirubin Urine Urobilinogen Ur Leukocyte Esterase 04/30/17 14:43 WBC RBC Hgb Hct MCV MCH MCHC RDW Plt Count MPV Neutrophils % Lymphocytes % Monocytes % Eosinophils % Basophils % Sodium Potassium Chloride Carbon Dioxide Anion Gap BUN Creatinine Creat Clearance w eGFR Random Glucose Calcium Total Bilirubin AST ALT Alkaline Phosphatase Total Protein Albumin Lipase Serum , Qual Urine Color Yellow Urine Appearance Clear Urine pH 5.0 Ur Specific [place] 1.026 Urine Protein Negative Urine Glucose (UA) Negative Urine Ketones Trace H Urine Blood 2+ H Urine Nitrite Negative Urine Bilirubin Negative Urine Urobilinogen Negative Ur Leukocyte Esterase Negative 04/30/17 14:37 Influenza Types A,B Antigen (FRANCINE) - Final Nasopharyngeal Swab - Final 04/30/17 14:43 RBC 5.24 H MCV 88.0 MCHC 33.7 RDW 13.3 D MPV 7.6 Neutrophils % 95.7 H Lymphocytes % 2.0 L D Monocytes % 2.1 L Eosinophils % 0.1 D Basophils % 0.1 - Medications Given in the ED: ED Medications Discontinued Medications Generic Name Dose Route Start Last Admin Trade Name Freq PRN Reason Stop Dose Admin Al Hydroxide/Mg Hydroxide 30 ml 04/30/17 14:38 04/30/17 15:13 Mylanta Suspension - PO 04/30/17 14:39 30 ml ONCE ONE Administration Sodium Chloride 1,000 mls @ 1,000 mls/hr 04/30/17 14:39 04/30/17 15:13 Normal Saline - IV 04/30/17 15:38 1,000 mls/hr ASDIR STA Administration Ondansetron HCl 4 mg 04/30/17 14:40 04/30/17 15:13 Zofran Injection IVPUSH 04/30/17 14:41 4 mg ONCE ONE Administration Ranitidine HCl 150 mg 04/30/17 14:38 04/30/17 15:13 Zantac - PO 04/30/17 14:39 150 mg ONCE ONE Administration Medical Decision Making - Medical Decision Making This is a 21 YOF who p/w nausea, vomiting x3, and RUQ and umbilical pain. On exam VS initially tachycardic, she has no active vomiting, no acute abdomen but RUQ and umbilical ttp. Lesser so but still present is RLQ ttp, no Bills's sign. DDX IBNLT appendicitis, UTI, pyelonephritis, renal stone, ovarian cyst, PID, etc. Additional order placed for CT abdomen/pelvis. 04/30/17 21:26 Labs result 16.2k WBC, polycythemia with Hgb 15.5. Ab/Pel CT without any e/o causative etiology for the patient's symptoms. 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 *DC/Admit/Observation/Transfer Diagnosis at time of Disposition: Adnexal cyst, Lung nodule seen on imaging study Abdominal pain Qualifiers: Abdominal location: right upper quadrant Qualified Code(s): R10.11 - Right upper quadrant pain Vomiting with nausea, not intractable Qualifiers: Vomiting type: unspecified Qualified Code(s): R11.2 - Nausea with vomiting, unspecified Leukocytosis Qualifiers: Leukocytosis type: unspecified Qualified Code(s): D72.829 - Elevated white blood cell count, unspecified - Discharge Dispostion Disposition: HOME Condition at time of disposition: Stable Admit: No - Referrals Referrals: Tan Curran MD [Staff Physician] - - Patient Instructions Additional Instructions: You were seen in the ER for abdominal pain, nausea, and vomiting. We did blood and urine lab tests and we found an elevated white blood cell count, which could indicate infection, but we were not able to find an infection in your urine, or on your CT scan of your abdomen and pelvis. We did find a small cyst in your pelvis, and a very small lung nodule on the left side. Please follow up with a primary doctor about these two things. We are giving you referral information for the internal medicine clinic so that you can establish primary care and have followup. Please drink plenty of fluids, and take Motrin or Tylenol for the pain. Please return to the ER for any new or worsening symptoms , especially if the abdominal pain worsens again, if you have vomiting and cannot keep down liquids, if you have vaginal discharge or burning on urination , or any other symptoms. - Post Discharge Activity
[2017-04-30] MEDS ORDERED: METOCLOPRAMIDE HCL INJECTION 10 MG/2 ML VIAL IVPUSH ONE (16:11)
[2017-04-30] MEDS ORDERED: METOCLOPRAMIDE HCL INJECTION 10 MG/2 ML VIAL ONE (16:47)
--- NOTE | 2017-04-30 22:30 | PN ---
Teaching Attending Note Name of Resident: Rico Devries ATTENDING PHYSICIAN STATEMENT I saw and evaluated the patient. I reviewed the resident's note and discussed the case with the resident. I agree with the resident's findings and plan as documented. SUBJECTIVE: 21 F with hx. of GERD and choleycystectomy (06/14) who presents with right upper and lower quadrant abdominal pain. Also with emesis NBNB X3 since this am. States pain is андрей-umbilical and was 8/10 upon presentation to ED. Notes pain is sharp in nature. Also notes dysuria and diarrhea x1. Pt. states she is still nausous and has not been able to keep down, PO intake OBJECTIVE: Physical: VS: Vital Signs Period Temp Pulse Resp BP Sys/Gaines Pulse Ox Last 24 Hr 99.1 F 98-118 17-17 111-115/60-77 96-100 GEN: NAD, Resting in bed, AA0X3 HEENT: NCAT, PERRL, Throat without erythema or exudates CARD: RRR S1, S2 RESP: CTAB ABD: BSx4, Mild TTP андрей-epigastric EXT: - C/C/E CBCD WBC 16.2 K/mm3 (4.0-10.0) H D 04/30/17 14:43 RBC 5.24 M/mm3 (3.60-5.2) H 04/30/17 14:43 Hgb 15.5 GM/dL (10.7-15.3) H D 04/30/17 14:43 Hct 46.1 % (32.4-45.2) H D 04/30/17 14:43 MCV 88.0 fl (80-96) 04/30/17 14:43 MCHC 33.7 g/dl (32.0-36.0) 04/30/17 14:43 RDW 13.3 % (11.6-15.6) D 04/30/17 14:43 Plt Count 251 K/MM3 (134-434) 04/30/17 14:43 MPV 7.6 fl (7.5-11.1) 04/30/17 14:43 CMP Sodium 137 mmol/L (136-145) 04/30/17 14:43 Potassium 3.9 mmol/L (3.5-5.1) 04/30/17 14:43 Chloride 102 mmol/L (98-107) 04/30/17 14:43 Carbon Dioxide 25 mmol/L (21-32) 04/30/17 14:43 Anion Gap 10 (8-16) 04/30/17 14:43 BUN 12 mg/dL (7-18) 04/30/17 14:43 Creatinine 0.6 mg/dL (0.55-1.02) 04/30/17 14:43 Creat Clearance w eGFR > 60 (>60) 04/30/17 14:43 Random Glucose 93 mg/dL (74-106) 04/30/17 14:43 Calcium 9.0 mg/dL (8.5-10.1) 04/30/17 14:43 Total Bilirubin 0.8 mg/dL (0.2-1.0) 04/30/17 14:43 AST 16 U/L (15-37) 04/30/17 14:43 ALT 24 U/L (12-78) 04/30/17 14:43 Alkaline Phosphatase 101 U/L (45-117) 04/30/17 14:43 Total Protein 8.5 g/dl (6.4-8.2) H 04/30/17 14:43 Albumin 4.5 g/dl (3.4-5.0) 04/30/17 14:43 ABD/PELVIS CT: Normal Appendizx, NO SBO. S/P choleycystectomy/ 3.0X2.7 R. Adenexal cyst. 4mm nodular opacity in L. Lung Base. ASSESSMENT AND PLAN: 21 F with hx. of GERD and choleycystectomy (06/14) who presents with right upper and lower quadrant abdominal pain, being admitted for Intractable nausea and vomiting. 1.) Intractable Nausea/Vomiting DDx: Acute Gastroenteritis - Clear liquids - IVF - Zofran prn 2.) Dvt Ppx - Low Risk - Ambulate Place in Obs
[2017-04-30 23:05] LABS: BASO % 0.1 % (0-2.0); HEMATOCRIT 42.2 % (32.4-45.2); HEMOGLOBIN 14.4 GM/dL (10.7-15.3); LYMPH % 8.6 % (8-40); MCH 30.1 pg (25.7-33.7); MCHC 34.2 g/dl (32.0-36.0); MEAN PLT VOLUME 7.8 fl (7.5-11.1); MONO % 3.5 % (3.8-10.2); NEUT % 87.8 % (42.8-82.8); PLATELET COUNT 236 K/MM3 (134-434); RBC 4.79 M/mm3 (3.60-5.2); RDW 13.2 % (11.6-15.6); WHITE BLOOD COUNT 9.9 K/mm3 (4.0-10.0)
[2017-04-30 23:12] LABS: ANION GAP 6 (8-16); BILIRUBIN,TOTAL 0.9 mg/dL (0.2-1.0); BLOOD UREA NITROGEN 7 mg/dL (7-18); CHLORIDE 104 mmol/L (98-107); CO2 28 mmol/L (21-32); CREATININE 0.8 mg/dL (0.55-1.02); GLUCOSE,RANDOM 105 mg/dL (74-106); POTASSIUM 3.6 mmol/L (3.5-5.1); SGOT/AST 13 U/L (15-37); SGPT/ALT 22 U/L (12-78); SODIUM 138 mmol/L (136-145); TOT PROT 7.4 g/dl (6.4-8.2)
[2017-04-30 23:13] LABS: ALK PHOS 91 U/L (45-117)
--- NOTE | 2017-04-30 23:46 | HP ---
CHIEF COMPLAINT: nausea, vomiting PCP: HISTORY OF PRESENT ILLNESS: Pt is a 21 y/o F with pmh GERD and cholecystectomy in 05/2016 who presents to ED with nausea & vomiting since this morning. Pt states she had ruq pain and then had 3 episodes nbnb vomiting with mild headache and one episode of nonbloody watery diarrhea in the ED. Pt denies fever, chills, sob, cp, blood in urine/stool. Pt denies menstrual abnormalities; has not had period since of her child 1 year ago, has IUD. Note: In ED pt was able to tolerate drinking the contrast for the CT scan. Then pt ate some crackers and drank water and was set to be discharged home but then had another episode of vomiting. Pt denies HIV screen ER course was notable for: (1) wbc 16.2, preg neg, lipase 152, UA: trace ketones / 2+ blood / 4 wbc, flu neg (2) APCT negative (3) Recent Travel: denies PAST MEDICAL HISTORY: GERD, ovarian cyst (known to pt. follows up w/ ObGYN) PAST SURGICAL HISTORY: cholecystectomy 05/2016 Social History: Smoking: denies Alcohol: denies Drugs: denies Family History: Allergies No Known Allergies Allergy (Verified 04/30/17 14:33) HOME MEDICATIONS: Home Medications Medication Instructions Recorded NK [No Known Home Medication] 07/14/16 REVIEW OF SYSTEMS CONSTITUTIONAL: Absent: fever, chills, diaphoresis, generalized weakness, malaise, loss of appetite HEENT: Absent: throat pain, throat swelling, difficulty swallowing, CARDIOVASCULAR: Absent: chest pain, syncope, palpitations RESPIRATORY: Absent: cough, shortness of breath GASTROINTESTINAL: abdominal pain, nausea, vomiting, diarrhea, Absent: constipation GENITOURINARY: Absent: dysuria, frequency, urgency, MUSCULOSKELETAL: Absent: myalgia, arthralgia, back pain HEMATOLOGIC/IMMUNOLOGIC: easy bruising Absent: NEUROLOGIC: headache Absent: PHYSICAL EXAMINATION Vital Signs - 24 hr 04/30/17 04/30/17 14:34 22:11 Temperature 99.1 F Pulse Rate 118 H Pulse Rate [ 98 H Radial] Respiratory 17 17 Rate Blood Pressure 115/60 Blood Pressure 111/77 [Right Arm] O2 Sat by Pulse 96 100 Oximetry (%) GENERAL: Awake, alert, and fully oriented, in no acute distress. HEAD: Normal with no signs of trauma. EYES: Pupils equal, round and reactive to light, extraocular movements intact, sclera anicteric, conjunctiva clear. No lid lag. EARS, NOSE, THROAT: oropharynx clear without exudates. Moist mucous membranes. NECK: Normal range of motion, supple without lymphadenopathy, JVD, or masses. LUNGS: Breath sounds equal, clear to auscultation bilaterally. No wheezes, and no crackles. No accessory muscle use. HEART: Regular rate and rhythm, normal S1 and S2 without murmur, rub or gallop. ABDOMEN: Soft, nontender, not distended, normoactive bowel sounds, no guarding, no rebound, no masses. No hepatomegaly or splenomegaly. MUSCULOSKELETAL: Normal range of motion at all joints. No bony deformities or tenderness. No CVA tenderness. UPPER EXTREMITIES: 2+ pulses, warm, well-perfused. No cyanosis. No clubbing. No peripheral edema. LOWER EXTREMITIES: 2+ pulses, warm, well-perfused. No calf tenderness. No peripheral edema. NEUROLOGICAL: Cranial nerves II-XII intact. Normal speech. Normal gait. PSYCHIATRIC: Cooperative. Good eye contact. Appropriate mood and affect. SKIN: Warm, dry, normal turgor, no rashes or lesions noted, normal capillary refill. Laboratory Results - last 24 hr 04/30/17 04/30/17 04/30/17 14:43 14:43 14:43 WBC 16.2 H D RBC 5.24 H Hgb 15.5 H D Hct 46.1 H D MCV 88.0 MCH 29.7 MCHC 33.7 RDW 13.3 D Plt Count 251 MPV 7.6 Neutrophils % 95.7 H Lymphocytes % 2.0 L D Monocytes % 2.1 L Eosinophils % 0.1 D Basophils % 0.1 Sodium 137 Potassium 3.9 Chloride 102 Carbon Dioxide 25 Anion Gap 10 BUN 12 Creatinine 0.6 Creat Clearance w eGFR > 60 Random Glucose 93 Calcium 9.0 Total Bilirubin 0.8 AST 16 ALT 24 Alkaline Phosphatase 101 Total Protein 8.5 H Albumin 4.5 Lipase 152 Serum , Qual Urine Color Yellow Urine Appearance Clear Urine pH 5.0 Ur Specific [place] 1.026 Urine Protein Negative Urine Glucose (UA) Negative Urine Ketones Trace H Urine Blood 2+ H Urine Nitrite Negative Urine Bilirubin Negative Urine Urobilinogen Negative Ur Leukocyte Esterase Negative Urine WBC (Auto) 4 Urine RBC (Auto) 9 Ur Epithelial Cells Rare Urine Bacteria Rare Urine Mucus Few 04/30/17 04/30/17 04/30/17 14:43 22:38 22:38 WBC 9.9 D RBC 4.79 Hgb 14.4 Hct 42.2 MCV 88.0 MCH 30.1 MCHC 34.2 RDW 13.2 Plt Count 236 MPV 7.8 Neutrophils % 87.8 H Lymphocytes % 8.6 D Monocytes % 3.5 L Eosinophils % 0.0 D Basophils % 0.1 Sodium 138 Potassium 3.6 Chloride 104 Carbon Dioxide 28 Anion Gap 6 L BUN 7 Creatinine 0.8 Creat Clearance w eGFR > 60 Random Glucose 105 Calcium 8.0 L Total Bilirubin 0.9 AST 13 L ALT 22 Alkaline Phosphatase 91 Total Protein 7.4 Albumin 4.0 Lipase Serum , Qual Negative Urine Color Urine Appearance Urine pH Ur Specific [place] Urine Protein Urine Glucose (UA) Urine Ketones Urine Blood Urine Nitrite Urine Bilirubin Urine Urobilinogen Ur Leukocyte Esterase Urine WBC (Auto) Urine RBC (Auto) Ur Epithelial Cells Urine Bacteria Urine Mucus ASSESSMENT/PLAN: Pt is a 21 y/o F with PMH GERD & cholecystectomy in 2017 who presents to ED with 3 episodes of NBNB vomiting this morning. Likely viral gastroenteritis. #Gastroenteritis -monitor for tolerating PO -APCT remarkable for adnexal cyst known to pt -IV fluids -Observation #FEN -NS -lytes wnl -regular diet #PPx -Hep Sub Q #Dispo -Obs Rico Devries MD PGY-1 IM Visit type - Emergency Visit Emergency Visit: Yes ED Registration Date: 04/30/17 Care time: The patient presented to the Emergency Department on the above date and was hospitalized for further evaluation of their emergent condition. - New Patient This patient is new to me today: Yes Date on this admission: 04/30/17 - Critical Care Critical Care patient: No
[2017-05-01] MEDS: HEPARIN NA (PORCINE) 5,000 UNITS/ML 1ML VIAL SQ SCH ×2 (07:11→15:16)
--- NOTE | 2017-05-01 10:58 | EKG ---
Test Reason : Blood Pressure : / mmHG Vent. Rate : 088 BPM Atrial Rate : 088 BPM P-R Int : 142 ms QRS Dur : 084 ms QT Int : 360 ms P-R-T Axes : 050 031 041 degrees QTc Int : 435 ms NORMAL SINUS RHYTHM NONSPECIFIC T WAVE ABNORMALITY ABNORMAL ECG WHEN COMPARED WITH ECG OF 25-MAY-2016 20:16, NO SIGNIFICANT CHANGE WAS FOUND Confirmed by ANA SOLANO MD ([id number]) on 05/01/2017 10:58:06 AM Referred By: Confirmed By:ANA SOLANO MD
--- NOTE | 2017-05-01 14:55 | DS ---
Physical Exam: SUBJECTIVE: Patient seen and examined at bedside. vomiting and abdominal pain resolved, denies any diarrhea or constipation , denies any fever, chills, SOB, or urinary symptoms. OBJECTIVE: Vital Signs Period Temp Pulse Resp BP Sys/Gaines Pulse Ox Last 24 Hr 98.2 F-98.5 F 81-98 17-18 101-111/54-77 100-100 PHYSICAL EXAM GENERAL: The patient is awake, alert, and fully oriented, in no acute distress. HEAD: Normal with no signs of trauma. EYES: sclera anicteric, conjunctiva clear. ENT: moist mucous membranes. NECK: supple. LUNGS: Breath sounds equal, clear to auscultation bilaterally, no wheezes, no crackles, no accessory muscle use. HEART: Regular rate and rhythm, S1, S2 without murmur, rub or gallop. ABDOMEN: Soft, nontender, nondistended, normoactive bowel sounds, no guarding, no rebound. EXTREMITIES: 2+ pulses, warm, well-perfused, no edema. NEUROLOGICAL: Cranial nerves II through XII grossly intact. Normal speech, gait not observed. PSYCH: Normal mood, normal affect. SKIN: Warm, dry, LABS Laboratory Results - last 24 hr 04/30/17 04/30/17 04/30/17 14:43 14:43 14:43 WBC 16.2 H D RBC 5.24 H Hgb 15.5 H D Hct 46.1 H D MCV 88.0 MCH 29.7 MCHC 33.7 RDW 13.3 D Plt Count 251 MPV 7.6 Neutrophils % 95.7 H Lymphocytes % 2.0 L D Monocytes % 2.1 L Eosinophils % 0.1 D Basophils % 0.1 Sodium 137 Potassium 3.9 Chloride 102 Carbon Dioxide 25 Anion Gap 10 BUN 12 Creatinine 0.6 Creat Clearance w eGFR > 60 Random Glucose 93 Calcium 9.0 Total Bilirubin 0.8 AST 16 ALT 24 Alkaline Phosphatase 101 Total Protein 8.5 H Albumin 4.5 Lipase 152 Serum , Qual Urine Color Yellow Urine Appearance Clear Urine pH 5.0 Ur Specific [place] 1.026 Urine Protein Negative Urine Glucose (UA) Negative Urine Ketones Trace H Urine Blood 2+ H Urine Nitrite Negative Urine Bilirubin Negative Urine Urobilinogen Negative Ur Leukocyte Esterase Negative Urine WBC (Auto) 4 Urine RBC (Auto) 9 Ur Epithelial Cells Rare Urine Bacteria Rare Urine Mucus Few 04/30/17 04/30/17 04/30/17 14:43 22:38 22:38 WBC 9.9 D RBC 4.79 Hgb 14.4 Hct 42.2 MCV 88.0 MCH 30.1 MCHC 34.2 RDW 13.2 Plt Count 236 MPV 7.8 Neutrophils % 87.8 H Lymphocytes % 8.6 D Monocytes % 3.5 L Eosinophils % 0.0 D Basophils % 0.1 Sodium 138 Potassium 3.6 Chloride 104 Carbon Dioxide 28 Anion Gap 6 L BUN 7 Creatinine 0.8 Creat Clearance w eGFR > 60 Random Glucose 105 Calcium 8.0 L Total Bilirubin 0.9 AST 13 L ALT 22 Alkaline Phosphatase 91 Total Protein 7.4 Albumin 4.0 Lipase Serum , Qual Negative Urine Color Urine Appearance Urine pH Ur Specific [place] Urine Protein Urine Glucose (UA) Urine Ketones Urine Blood Urine Nitrite Urine Bilirubin Urine Urobilinogen Ur Leukocyte Esterase Urine WBC (Auto) Urine RBC (Auto) Ur Epithelial Cells Urine Bacteria Urine Mucus CBC, BMP 04/30/17 22:38 04/30/17 22:38 05/01/2017 CT Abdomen /[facility] Impression: 1. Normal appendix. No bowel obstruction. No definite bowel wall thickening. 2. Status post cholecystectomy with no discrete collection in the gallbladder fossa. No biliary ductal dilatation. 3. Approximately 3.0 x 2.7 cm right adnexal cyst. 4. Nonspecific 4 mm nodular opacity in the left lung base. EKG: NSR, with no axis deviation , no St,T wave abnormalities, HOSPITAL COURSE: Date of Admission:04/30/17 Date of Discharge: 05/01/17 is a 21 y/o F with PMH GERD & cholecystectomy in 2017 who presents to ED with 3 episodes of non bilious no bloody vomiting th. Likely viral gastroenteritis. was given IV fluids and observed till she tolerate food without nausea , vomiting or diarrhea.on Abdomen pelvic ct scan she was found to have adnexal mass 3x 2.7 cm and 4 mm left lower lobe pulmonary nodule and we recommended to follow up as out patient with her contract attorney and primary care physician.pt is stable and will be discharged home. Minutes to complete discharge: 40 Discharge Summary Reason For Visit: LEUKOCYTOSIS,NON-INTRACTABLE VOMITING WITH NAUSEA Current Active Problems Adnexal mass (Chronic) Lung nodule < 6cm on CT (Chronic) Condition: Stable - Instructions Diet, Activity, Other Instructions: You were seen in the ER for abdominal pain, nausea, and vomiting. We did blood and urine lab tests and we found an elevated white blood cell count, which could indicate infection, but we were not able to find an infection in your urine, or on your CT scan of your abdomen and pelvis. We did find a small cyst in your pelvis, and a very small lung nodule on the left side. Patient is aware of the cyst and she's told to follow up with her own obgyn doctor. Please follow up with a primary doctor about these two things. We are giving you referral information for the internal medicine clinic so that you can establish primary care and have followup. Please drink plenty of fluids, and take Motrin or Tylenol for the pain. Please return to the ER for any new or worsening symptoms, especially if the abdominal pain worsens again, if you have vomiting and cannot keep down liquids, if you have vaginal discharge or burning on urination, or any other symptoms. Patient has 4mm lung nodular, follow with pulmonary in a months period. Referrals: Tan Curran MD [Staff Physician] - 1 Week Miguel Cabral MD [Staff Physician] - 05/28/17 Disposition: HOME - Home Medications Comprehensive Discharge Medication List: Ambulatory Orders NK [No Known Home Medication] 07/14/16 This patient is new to me today: Yes Date on this admission: 05/01/17 Emergency Visit: Yes ED Registration Date: 04/30/17 Care time: The patient presented to the Emergency Department on the above date and was hospitalized for further evaluation of their emergent condition. Critical Care patient: No - Discharge Referral Referred to [facility] Med [facility].C[facility] No
--- NOTE | 2017-05-01 17:57 | PN ---
Teaching Attending Note Name of Resident: Osmany Davies ATTENDING PHYSICIAN STATEMENT I saw and evaluated the patient. I reviewed the resident's note and discussed the case with the resident. I agree with the resident's findings and plan as documented. SUBJECTIVE: Patient has no further diarrhea, no bleed, no chest pain, no further nausea and vomiting. OBJECTIVE: Vital Signs Temperature 98.3 F 05/01/17 15:36 Pulse Rate 60 05/01/17 15:36 Respiratory Rate 18 05/01/17 15:36 Blood Pressure 100/63 05/01/17 15:36 O2 Sat by Pulse Oximetry (%) 100 05/01/17 07:20 CBCD WBC 9.9 K/mm3 (4.0-10.0) D 04/30/17 22:38 RBC 4.79 M/mm3 (3.60-5.2) 04/30/17 22:38 Hgb 14.4 GM/dL (10.7-15.3) 04/30/17 22:38 Hct 42.2 % (32.4-45.2) 04/30/17 22:38 MCV 88.0 fl (80-96) 04/30/17 22:38 MCHC 34.2 g/dl (32.0-36.0) 04/30/17 22:38 RDW 13.2 % (11.6-15.6) 04/30/17 22:38 Plt Count 236 K/MM3 (134-434) 04/30/17 22:38 MPV 7.8 fl (7.5-11.1) 04/30/17 22:38 CMP Sodium 138 mmol/L (136-145) 04/30/17 22:38 Potassium 3.6 mmol/L (3.5-5.1) 04/30/17 22:38 Chloride 104 mmol/L (98-107) 04/30/17 22:38 Carbon Dioxide 28 mmol/L (21-32) 04/30/17 22:38 Anion Gap 6 (8-16) L 04/30/17 22:38 BUN 7 mg/dL (7-18) 04/30/17 22:38 Creatinine 0.8 mg/dL (0.55-1.02) 04/30/17 22:38 Creat Clearance w eGFR > 60 (>60) 04/30/17 22:38 Random Glucose 105 mg/dL (74-106) 04/30/17 22:38 Calcium 8.0 mg/dL (8.5-10.1) L 04/30/17 22:38 Total Bilirubin 0.9 mg/dL (0.2-1.0) 04/30/17 22:38 AST 13 U/L (15-37) L 04/30/17 22:38 ALT 22 U/L (12-78) 04/30/17 22:38 Alkaline Phosphatase 91 U/L (45-117) 04/30/17 22:38 Total Protein 7.4 g/dl (6.4-8.2) 04/30/17 22:38 Albumin 4.0 g/dl (3.4-5.0) 04/30/17 22:38 Current Medications Generic Name Dose Route Start Last Admin Trade Name Freq PRN Reason Stop Dose Admin Heparin Sodium (Porcine) 5,000 unit 05/01/17 06:00 05/01/17 15:16 Heparin - SQ 5,000 unit TID JAY Administration Home Medications Medication Instructions Recorded NK [No Known Home Medication] 07/14/16 PE: comfortable with no acute distress CHest:CTABL Abdomen: soft, NT, positive for BS Heart: S1S2 positive neuro :AAOX3 , NFD ABD/PELVIS CT: Normal Appendix, NO SBO. S/P choleycystectomy/ 3.0X2.7 R. Adenexal cyst. 4mm nodular opacity in L. Lung Base. ASSESSMENT AND PLAN: Patient is a 21 F with hx. of GERD and choleycystectomy (06/14) who presents with right upper and lower quadrant abdominal pain, being admitted for Intractable nausea and vomiting. # Intractable Nausea/Vomiting improved, no further Nausea or vomiting, no further diarrhea. Patient is being discharged home today CT reported adnexal mass , patient is aware of the mass and will continue to follow with her obgyn 4mm nodular to follow with Pulmonary in 3 months
[2017-05-01 18:49] VITALS: BP 105/62; PULSE 66; TEMP 99.3
== END 2017-05-01 20:45 | disposition home or self-care (01) ==
LOC: JER 13:49 → JERBED 22:33 → INTOOBSV 22:33 → J5S 23:37
PROVIDERS: ADMIT Internal Medicine; ATTEND Internal Medicine
PROC: 3E033GC Introduction of Other Therapeutic Substance into Peripheral Vein, Percutaneous Approach (ICD-10-PCS; principal; 2017-04-30)
PROC: 3E013GC Introduction of Other Therapeutic Substance into Subcutaneous Tissue, Percutaneous Approach (ICD-10-PCS; 2017-04-30)
DX: N85.8 Other specified noninflammatory disorders of uterus (principal); R11.2 Nausea with vomiting, unspecified; R10.11 Right upper quadrant pain; R91.1 Solitary pulmonary nodule; D72.829 Elevated white blood cell count, unspecified; N83.8 Other noninflammatory disorders of ovary, fallopian tube and broad ligament; N83.209 Unspecified ovarian cyst, unspecified side
CPT/HCPCS: 36415; 74177-TC; 80053; 81003; 81015; 83690; 84703; 85025; 87804; 93005; 93010; 96361; 96372; 96374; 96375; 96376; 99283-25; G0378; J1644

== ENCOUNTER 2021-03-14 17:41 | Emergency (ER) | payer SELFPAY ==
[2021-03-14 18:18] VITALS: BP 119/82; PULSE 109; TEMP 99.2; BMI 31.7
[2021-03-14] MEDS ORDERED: METOCLOPRAMIDE HCL INJECTION 10 MG/2 ML VIAL IVPB ONE (20:08)
[2021-03-14] MEDS ORDERED: SODIUM CHLORIDE 1,000 ML IV STA (20:08)
[2021-03-14] MEDS ORDERED: MAG HYDROX/AL HYDROX/SIMETH 30 ML UNIT-DOSE CUP PO ONE (20:08)
[2021-03-14] MEDS ORDERED: ACETAMINOPHEN 1000 MG/100 ML VIAL IVPB ONE (20:08)
[2021-03-14] MEDS ORDERED: FAMOTIDINE 20 MG/50 ML IVPB 20 MG/50 ML MG IVPB ONE ×2 (20:08→20:26)
[2021-03-14] MEDS ORDERED: MAG HYDROX/AL HYDROX/SIMETH 30 ML UNIT-DOSE CUP ONE (20:26)
[2021-03-14] MEDS ORDERED: METOCLOPRAMIDE HCL INJECTION 10 MG/2 ML VIAL ONE (20:26)
[2021-03-14] MEDS ORDERED: ACETAMINOPHEN INJECTION 100 ML IVPB ONE (20:26)
[2021-03-14 20:34] LABS: BASO % 0.2 % (0-2.0); EOS % 0.1 % (0-4.5); HEMATOCRIT 41.8 % (32.4-45.2); HEMOGLOBIN 14.4 GM/dL (10.7-15.3); LYMPH % 7.4 % (8-40); MCH 30.7 pg (25.7-33.7); MCHC 34.3 g/dl (32.0-36.0); MEAN CELL VOLUME 89.4 fl (80-96); MEAN PLT VOLUME 7.3 fl (7.5-11.1); MONO % 4.3 % (3.8-10.2); PLATELET COUNT 275 10^3/uL (134-434); RBC 4.68 M/mm3 (3.60-5.2); RDW 12.8 % (11.6-15.6); WHITE BLOOD COUNT 9.8 K/mm3 (4.0-10.0)
[2021-03-14 20:39] LABS: EPI CELLS 19 /uL (0-25.1); HCG,QUALITATIVE URINE Negative; HYALINE CASTS 0 /uL (0-3.1); PH,URINE 5.5 (5.0-8.0); URINE APPEARANCE CLOUDY; URINE BACTERIA 331 /uL (0-1359); URINE BILIRUBIN NEGATIVE (NEGATIVE); URINE COLOR YELLOW; URINE GLUCOSE (UA) NEGATIVE (NEGATIVE); URINE KETONE NEGATIVE (NEGATIVE); URINE LEUK ESTERASE NEGATIVE (NEGATIVE); URINE NITRITE NEGATIVE (NEGATIVE); URINE PROTEIN NEGATIVE (NEGATIVE); URINE RBC 6 /uL (0-23.9); URINE UROBILINOGEN 0.2 mg/dL (0.2-1.0); URINE WBC 9 /uL (0-25.8)
[2021-03-14 21:02] LABS: ALBUMIN 4.2 g/dl (3.4-5.0)
[2021-03-14 21:05] LABS: CREATININE 0.8 mg/dL (0.55-1.3)
[2021-03-14 21:06] LABS: TOT PROT 8.2 g/dl (6.4-8.2)
== END 2021-03-14 22:19 | disposition home or self-care (01) ==
LOC: JER 17:41
PROC: 3E0333Z Introduction of Anti-inflammatory into Peripheral Vein, Percutaneous Approach (ICD-10-PCS; principal; 2021-03-14)
PROC: 3E033GC Introduction of Other Therapeutic Substance into Peripheral Vein, Percutaneous Approach (ICD-10-PCS; 2021-03-14)
PROC: 3E033GC Introduction of Other Therapeutic Substance into Peripheral Vein, Percutaneous Approach (ICD-10-PCS; 2021-03-14)
PROC: 3E0337Z Introduction of Electrolytic and Water Balance Substance into Peripheral Vein, Percutaneous Approach (ICD-10-PCS; 2021-03-14)
DX: R10.13 Epigastric pain (principal)
CPT/HCPCS: 36415; 80053; 81003; 83690; 84703; 85025; 87086; 99284-25; C9803; J0131; U0003; U0005

== ENCOUNTER 2024-06-25 23:05 | Inpatient (IN) | payer OTHER ==
[2024-06-26] MEDS: ELECTROLYTE-148 SOLN 1,000 ML IV SCH ×2 (00:50→06:05)
[2024-06-26 01:08] VITALS: RESP 18
[2024-06-26 01:14] LABS: ABSOLUTE IMMATURE GRANULOCYTES 0.03 x10^3/uL (0.0-0.031); BASOPHILS # 0.03 x10^3/uL (0.01-0.08); EOSINOPHIL % 0.6 % (0.7-5.8); EOSINOPHILS # 0.06 x10^3/uL (0.04-0.36); HEMOGLOBIN 11.7 g/dL (11.2-15.7); MCHC 33.4 g/dl (32.2-35.5); MEAN CELL VOLUME 85.2 fl (79.4-94.8); MEAN PLT VOLUME 9.9 fl (9.4-12.3); MONOCYTE # 0.63 x10^3/uL (0.24-0.86); MONOCYTE % 6.8 % (4.7-12.5); PLATELET COUNT 366 x10^3/uL (182-369)
[2024-06-26 01:34] LABS: POTASSIUM 4.1 mmol/L (3.5-5.1)
[2024-06-26 01:35] LABS: CALCIUM 8.8 mg/dL (8.5-10.1)
[2024-06-26 01:36] LABS: BLOOD UREA NITROGEN 6.6 mg/dL (7-18)
[2024-06-26 01:39] LABS: CREATININE 0.5 mg/dL (0.55-1.3)
[2024-06-26 02:20] LABS: INR 0.9 (0.83-1.09); PROTHROMBIN TIME (PATIENT) 9.9 SEC (9.7-13.0)
[2024-06-26 02:23] LABS: ACTIVATED PTT 24.6 SECONDS (25.2-36.5)
[2024-06-26 02:32] LABS: HIV INTERPRETATION NEGATIVE (NEGATIVE)
[2024-06-26] MEDS ORDERED: ONDANSETRON 4 MG/2 ML VIAL ONE (05:35)
[2024-06-26] MEDS: ONDANSETRON 4 MG/2 ML VIAL IVPUSH PRN (05:40)
[2024-06-26] MEDS ORDERED: BUTORPHANOL TARTRATE 2 MG/ML VIAL IVPB PRN (06:19)
[2024-06-26 06:40] VITALS: BMI 35.1
[2024-06-26] MEDS ORDERED: AMPICILLIN SODIUM 2 GM VIAL ONE (06:41)
[2024-06-26] MEDS: AMPICILLIN - 2 GM in SODIUM CHLORIDE 100 ML IVPB ONE (06:45)
[2024-06-26] MEDS ORDERED: FENTANYL/BUPIVACAINE/NS/PF - PCEA - 50 ML DISP.SYRIN EP ONE (06:58)
[2024-06-26] MEDS ORDERED: FENTANYL CITRATE/PF 50 MCG/ML VIAL ONE (07:04)
[2024-06-26] MEDS ORDERED: BUPIVACAINE HCL/PF 0.25% (2.5MG/ML) 10 ML VIAL ONE (07:04)
[2024-06-26] MEDS: FENTANYL/BUPIVACAINE/NS/PF - PCEA - 50 ML DISP.SYRIN EP SCH ×2 (07:15→13:27)
[2024-06-26] MEDS ORDERED: NALOXONE HCL 0.4 MG/ML VIAL IVPUSH PRN (07:23)
[2024-06-26] MEDS ORDERED: BISACODYL 10 MG SUPP.RECT RC PRN (08:13)
[2024-06-26] MEDS ORDERED: WITCH HAZEL 50% (TUCKS) 40 PAD/JAR PAD TP PRN (08:13)
[2024-06-26] MEDS ORDERED: BENZOCAINE 20% 57 GM BOTTLE TP PRN (08:13)
[2024-06-26] MEDS ORDERED: BENZOCAINE 28 GM HEMORRHOIDAL OINTMENT TP PRN (08:13)
[2024-06-26] MEDS ORDERED: METHYLERGONOVINE MALEATE 0.2 MG/1 ML AMP IM PRN (08:13)
[2024-06-26] MEDS: OXYTOCIN 30 UNITS in 0.9% NS 30 UNIT/500 ML INFUS.BAG IVPB SCH (08:35)
[2024-06-26] MEDS: PROMETHAZINE HCL 25 MG/1 ML VIAL IVPB ONE (08:47)
[2024-06-26] MEDS ORDERED: LIDOCAINE HCL 1% PRESERVATIVE FREE - 30ML VIAL ONE (09:23)
[2024-06-26] MEDS ORDERED: OXYTOCIN 20 UNITS in 0.9% NS 20 UNIT/1,000 ML INFUS.BAG IV ONE (09:24)
[2024-06-26] MEDS ORDERED: AMPICILLIN SODIUM 1 GM VIAL ONE (09:51)
[2024-06-26] MEDS: AMPICILLIN - 1 GM in SODIUM CHLORIDE 100 ML IVPB SCH (09:53)
[2024-06-26] MEDS: OXYTOCIN 20 UNITS in 0.9% NS 20 UNIT/1,000 ML INFUS.BAG IV SCH (12:30)
[2024-06-26 12:42] LABS: CORD BASE EXCESS -4.6 mmol/L (0-2); CORD HCO3 21.8 mmHg (20-29); CORD PCO2 44.8 mmHg (30-78); CORD pH 7.306 (7.14-7.44)
[2024-06-26 12:47] LABS: CORD HCO3 26.8 mmHg (20-29); CORD PCO2 68.6 mmHg (30-78)
[2024-06-26] MEDS ORDERED: IBUPROFEN 600 MG TABLET (FP) PO ONE (13:16)
[2024-06-26] MEDS: IBUPROFEN 600 MG TABLET (FP) PO PRN (13:25)
[2024-06-26] MEDS: FERROUS SO4 325 MG TABLET (FP) PO SCH (13:26)
[2024-06-26] MEDS: PRENATAL VITAMINS W/ FOLIC ACID TABLET (FP) PO SCH (13:28)
[2024-06-26] MEDS ORDERED: ACETAMINOPHEN 325 MG TABLET (FP) ONE (15:40)
[2024-06-26] MEDS: ACETAMINOPHEN 325 MG TABLET (FP) PO PRN (16:29)
[2024-06-26] MEDS ORDERED: oxyCODONE HCL 5 MG TABLET ONE (16:48)
[2024-06-26] MEDS: oxyCODONE HCL 5 MG TABLET PO PRN (16:50)
[2024-06-26] MEDS ORDERED: FERROUS SO4 325 MG TABLET (FP) ONE (17:58)
[2024-06-27 07:40] LABS: ABSOLUTE IMMATURE GRANULOCYTES 0.04 x10^3/uL (0.0-0.031); BASOPHILS # 0.03 x10^3/uL (0.01-0.08); EOSINOPHIL % 0.6 % (0.7-5.8); EOSINOPHILS # 0.06 x10^3/uL (0.04-0.36); HEMATOCRIT 32.6 % (34.1-44.9); HEMOGLOBIN 10.8 g/dL (11.2-15.7); MCHC 33.1 g/dl (32.2-35.5); MEAN CELL VOLUME 86.2 fl (79.4-94.8); MEAN PLT VOLUME 10.1 fl (9.4-12.3); MONOCYTE # 0.74 x10^3/uL (0.24-0.86); PLATELET COUNT 276 x10^3/uL (182-369); RDW 12.9 % (12.1-16.5)
[2024-06-27] MEDS ORDERED: SENNOSIDES/DOCUSATE COMBO (SENNA PLUS) TABLET (UD) PO PRN (22:00)
[2024-06-28 08:55] VITALS: BP 126/77; PULSE 59; TEMP 98.1
== END 2024-06-28 13:45 | disposition home or self-care (01) | DRG 560 ==
LOC: JDEL 23:05 → JLDR 06-26 06:05 → J3W 06-26 20:27
PROVIDERS: ADMIT Obstetrics & Gynecology; ATTEND Obstetrics & Gynecology
PROC: 10E0XZZ Delivery of Products of Conception, External Approach (ICD-10-PCS; principal; 2024-06-28)
DX: O80 Encounter for full-term uncomplicated delivery (principal); Z3A.38 38 weeks gestation of pregnancy; Z37.0 Single live birth
CPT/HCPCS: 36415; 36600; 59025; 59409; 80048; 82803; 84450; 84460; 85025; 85027; 85610; 85730; 86704; 86705; 86780; 86803; 86850; 86900; 86901; 87340; 87389; 87517